=== PATIENT | female | born 1965 | race Caucasian/White ===

== ENCOUNTER → 2018-01-02 07:14 | Outpatient (CLI) | payer OTHER, SELFPAY ==
[2018-01-02 10:51] LABS: Absolute Lymphocyte Count 1.91 X10^3/ul (0.83-4.51); Absolute Neutrophil Count 2.5 X10^3/uL (2.0-7.7); Basophil# 0.02 X10^3/uL; Basophil% 0.4 % (0-1); Eosinophil# 0.14 X10^3/uL; Eosinophils% 2.8 % (0-5); Hematocrit 43.3 % (37-47); Hemoglobin 14.6 g/dl (12.0-15.0); Lymphocyte # 1.91 X10^3/ul (4.0); Lymphocyte % 38.4 % (19-41); Mean Corp Hgb Conc 33.7 g/gl (32-36); Mean Corpuscular Hgb 30.5 pg (27.0-32.0); Mean Corpuscular Volume 90.6 fL (81-99); Mean Platelet Vol. 9.6 fl (6.2-12.0); Monocyte# 0.36 X10^3/uL; Monocyte% 7.2 % (0-10); Neutrophil # 2.53 X10^3/uL (2.7-7.7); Platelet Count 295 K/mm3 (150-450); RBC Distribution Width CV 13.5 % (11.6-14.6); RBC Distribution Width SD 44.1 fl (35.1-43.9); Red Blood Count 4.78 M/mm3 (4.2-5.4)
[2018-01-02 10:54] LABS: POSITIVE COUNT NO; POSITIVE DIFFERENTIAL NO; POSITIVE MORPHOLOGY NO
[2018-01-02 11:09] LABS: Vitamin B12 177 pg/mL (211-911); Vitamin D,25 Hydroxy 29.9 ng/mL (29.95-100.01)
[2018-01-02 11:47] LABS: AST(SGOT) 23 U/L (15-37); Alanine Aminotransfer ALT/SGPT 27 U/L (13-56); Albumin, Serum 3.7 g/dL (3.2-5.0); Alkaline Phosphatase 78 U/L (45-117); Anion Gap 7 (5-15); BUN 14 mg/dL (7-18); BUN/Creat Ratio 21.6 RATIO (10-20); Calcium,Total 8.8 mg/dL (8.5-10.1); Chloride 106 mmol/L (98-107); Cholesterol 137 mg/dL (200); Creatinine, Serum 0.65 mg/dL (0.55-1.02); EST Glomerular Filtration Rate 101 mL/min (>60); Est Glom Filt Rate - Afr Amer 123 mL/min (>60); Free T3 2.8 pg/mL (2.18-3.98); Globulin 3.8 g/dL (2.2-4.2); Glucose 84 mg/dL (74-106); High Density Lipoprotein 44 mg/dL; Iron 99 ug/dL (50-170); Potassium 4.3 mmol/L (3.5-5.1); Protein, Total 7.5 g/dL (6.4-8.2); Sodium Level 142 mmol/L (136-145); T4 Free Direct 0.95 ng/dL (0.76-1.46); Thyroid Stim Hormone (TSH) 2.26 uIU/mL (0.358-3.74); Triglycerides 112 mg/dL; Very Low Density Lipoprotein 22 mg/dL (5-40)
== END ==
PROVIDERS: Family Provider Nurse Practitioner; PCP Nurse Practitioner; Referring Provider Nurse Practitioner; Visit Provider Nurse Practitioner
DX: E21.0 Primary hyperparathyroidism (principal); D50.9 Iron deficiency anemia, unspecified; E55.9 Vitamin D deficiency, unspecified; Z13.220 Encounter for screening for lipoid disorders; Z86.39 Personal history of other endocrine, nutritional and metabolic disease
CPT/HCPCS: 36415; 80053; 80061; 82306; 82607; 82746; 83540; 83970; 84439; 84443; 84481; 85025

== ENCOUNTER → 2018-02-10 07:24 | Outpatient (CLI) | payer OTHER, SELFPAY ==
--- NOTE | 2018-02-10 07:01 | BI_ITS ---
MAMMOGRAPHY - BILATERAL SCREENING REASON FOR EXAM: Female, 52 years old. Routine annual screening examination. PERTINENT HISTORY: Non-contributory. TECHNIQUE: Digital bilateral breast roya (3D mammographic acquisition) in the CC and MLO projections. 2-D mediolateral oblique (MLO) and craniocaudad (CC) views of both breasts were obtained. CAD: Full Field Digital Mammography with Computer Added Detection was performed. COMPARISON: Comparison is made with prior examination dated November 21, 2016 and November 21, 2015. FINDINGS: Breast Composition: The breasts are heterogeneously dense, which may obscure small masses. There are no dominant masses or suspicious calcifications. No other significant abnormalities are identified. There has been no significant change since the prior study. BI/SCREENING MAMM (CAD), BILAT IMPRESSION: Stable bilateral screening mammogram. Yearly follow-up mammogram recommended. (A) ASSESSMENT CATEGORY: BIRADS Category 1: Negative. A letter regarding these results will be sent to the patient by the facility within 30 days. Approximately 10% of breast cancers are not detected by mammography. A normal mammogram should not delay biopsy of a clinically suspicious abnormality. [id number] Electronically Signed: Jose Angel Conteh MD at 9:18 EST Tel [phone], Service support ,
--- OUTSIDE RECORDS SUMMARY | 2018-03-24 19:58 | XMS RPT_ITS | Continuity of Care Document ---
:1965 Author Organization [facility] Address [address] [facility] [facility] [address] [place] [address] Phone Care Team Providers Name Role Phone Shae Shore CNP Unavailable Genesis Samayoa Unavailable Unavailable Gravius, Florence Unavailable Unavailable Problems Name Dates Details 3 pregnancies 2 births 1 cesarian and 1 vaginal Status: Active Anemia Status: Active BMI 22.0-22.9, adult (Z68.22, V85.1) Status: Active Encounter for screening for lipid disorder (Z13.220, V77.91) Status: Active Encounter for screening mammogram for breast cancer (Renamed from Encounter for screening mammogram for malignant neoplasm of breast) (Z12.31, V76.12) Status: Active H/O Johnny thyroiditis (Z86.39, V12.29) Status: Active Iron deficiency anemia (D50.9, 280.9) Status: Active Need for prophylactic vaccination and inoculation against influenza (Renamed from Need for immunization against influenza) (Z23, V04.81) Status: Active Nonsmoker (Z78.9, V49.89) Status: Active Osteopenia (M85.80, 733.90) Comments: BD done Status: Active Parathyroidectomy Feb-2017 Comments: took out one of the 4 parathyroid glands Status: Active Primary hyperparathyroidism (E21.0, 252.01) Comments: s/p parathyroidectomy 2016 by Megan last PTH September by Justin normal range, repeat prn will repeat today Status: Active Tinnitus (H93.19, 388.30) Comments: plays bells, consider ENT eval in future Status: Active Vitamin B12 deficiency (E53.8, 266.2) Status: Active Vitamin D deficiency (E55.9, 268.9) Status: Active Medications Name Dates Details Biotin 1 MG Oral Capsule daily for 0 days Refills: 0 Ordered:31-Dec-2017 Shae Shore CNP, CNP, Mary E Start : 31-Dec-2017 Active Calcium 600 MG Oral Tablet 2 (two) Tablet daily for 0 days Quantity: 30 {Tablet} Refills: 0 Ordered:31-Dec-2017 Shae Shore CNP, CNP, Mary E Start : 31-Dec-2017 Active Cyanocobalamin 2500 MCG Sublingual Tablet Sublingual 1 (one) Microgram daily for 0 days Quantity: 90 {Milligram} Refills: 0 Ordered:05-Jan-2018 Shae Shore CNP, CNP, Mary E Start : 05-Jan-2018 Active Iron (Ferrous Gluconate) 325 MG Oral Tablet daily for 0 days Refills: 0 Ordered:31-Dec-2017 Shae Shore CNP, CNP, Mary E Start : 31-Dec-2017 Active Vitamin D 2000 UNIT Oral Capsule daily for 0 days Refills: 0 Ordered:31-Dec-2017 Shae Shore CNP, CNP, Mary E Start : 31-Dec-2017 Active Vitamin D3 Super Strength 2000 UNIT Oral Tablet 1 (one) Tablet daily for 0 days Quantity: 60 {Tablet} Refills: 0 Ordered:05-Jan-2018 Shae Shore CNP, CNP, Mary E Start : 05-Jan-2018 Active Allergies and Adverse Reactions Name Dates Details No Known Allergies (Allergy) Onset: 31-Dec-2017 Status: Active No Known Drug Allergies (Allergy) Onset: 31-Dec-2017 Status: Active Procedures Procedure Dates Details Parathyroidectomy Completed Comments: one of the four glands removed Family History Unknown Family Member Name Dates Details Maternal Aunt Comments: hypothyroidism Status: Active Mother Comments: hypertension Status: Active Sister 1 Comments: hoshimotos Status: Active Social History Name Dates Details Alcohol use: Non Drinker / No Alcohol Use. Status: Active Caffeine use Comments: one cup a day Status: Active Drug Use: No drug use. Status: Active Tobacco use: Never smoker. Status: Active Smoking Status Name Dates Details Never smoker Vital Signs Date Test Result Details [id number] Temperature 98.1 f Comments: Method: Temporal Pulse 73 /min Comments: Pattern: Regular Respiration Rate 16 /min Comments: Pattern: Unlabored O2 SAT 98 % Comments: Room air BP Systolic 128 mm[Hg] Comments: Patient Position: Sitting; Cuff Location: Left Arm; Cuff Size: Standard BP Diastolic 80 mm[Hg] Comments: Patient Position: Sitting; Cuff Location: Left Arm; Cuff Size: Standard Weight 141.5 lb Height 66.5 in Body Mass Index Calculated 22.5 kg/m2 Body Surface Area Calculated 1.74 m2 :31 Temperature 97.6 f Comments: Method: Temporal Pulse 65 /min Comments: Pattern: Regular Respiration Rate 16 /min Comments: Pattern: Unlabored O2 SAT 98 % Comments: Room air BP Systolic 132 mm[Hg] Comments: Patient Position: Sitting; Cuff Location: Left Arm; Cuff Size: Standard BP Diastolic 82 mm[Hg] Comments: Patient Position: Sitting; Cuff Location: Left Arm; Cuff Size: Standard Weight 141.5 lb Height 66.5 in Body Mass Index Calculated 22.5 kg/m2 Body Surface Area Calculated 1.74 m2 Results Date Description Value Details :28 CBC W/Diff, Automated Comments: [facility] [address] [place], [place], [id number] Absolute Lymph 1.91 {X10_3/ul} (Normal) Range: 0.83-4.51 Absolute Neut 2.5 {X10_3/uL} (Normal) Range: 2.0-7.7 IM GRAN % 0.200 % (Normal) Range: 0.0-0.9 Comments: IG% - Immature Granulocytes (promyelocytes, myelocytes andmetamyelocytes) > 1% indicates that a LEFT SHIFT is Present. BASO% 0.4 % (Normal) Range: 0-1 EO% 2.8 % (Normal) Range: 0-5 MONO% 7.2 % (Normal) Range: 0-10 LY% 38.4 % (Normal) Range: 19-41 NEUT% 51.0 % (Normal) Range: 47-70 MPV 9.6 fL (Normal) Range: 6.2-12.0 PLT 295 K/mm3 (Normal) Range: 150-450 RDW SD 44.1 fL (Abnormal) Range: 35.1-43.9 RDW CV 13.5 % (Normal) Range: 11.6-14.6 MCHC 33.7 {g/gl} (Normal) Range: 32-36 MCH 30.5 pg (Normal) Range: 27.0-32.0 MCV 90.6 fL (Normal) Range: 81-99 HCT 43.3 % (Normal) Range: 37-47 HGB 14.6 g/dL (Normal) Range: 12.0-15.0 RBC 4.78 {M/mm3} (Normal) Range: 4.2-5.4 WBC 5.0 K/mm3 (Normal) Range: 4.4-11.0 62-Qpq-54883:28 Comprehensive Metabolic Profil Comments: Is Patient Taking Vitamins or Folic Acid Supplements? [facility] [address] [place], [address] GAP 7 (Normal) Range: 5-15 CO2 29.0 mmol/L (Normal) Range: 21.0-32.0 CL 106 mmol/L (Normal) Range: 98-107 K 4.3 mmol/L (Normal) Range: 3.5-5.1 NA 142 mmol/L (Normal) Range: 136-145 T BILI 0.80 mg/dL (Normal) Range: 0.20-1.00 ALT 27 U/L (Normal) Range: 13-56 ALK P 78 U/L (Normal) Range: 45-117 AST 23 U/L (Normal) Range: 15-37 CA 8.8 mg/dL (Normal) Range: 8.5-10.1 A/G 1.0 {RATIO} (Normal) Range: 0.9-2.4 GLOB 3.8 g/dL (Normal) Range: 2.2-4.2 ALB 3.7 g/dL (Normal) Range: 3.2-5.0 T PROT 7.5 g/dL (Normal) Range: 6.4-8.2 BUN/CRE 21.6 {RATIO} (Abnormal) Range: 10-20 EST GFR - AA 123 mL/min (Normal) Comments: GFR Calc EST GFR 101 mL/min (Normal) Comments: Non- GFR Calc CREAT,SERUM 0.65 mg/dL (Normal) Range: 0.55-1.02 Comments: The validity of the calculated GFR AND GFRAA in patients over70 years has not been determined. Clinical correlation isessential. BUN 14 mg/dL (Normal) Range: 7-18 GLU 84 mg/dL (Normal) Range: 74-106 Comments: Please note revised GLUCOSE reference range ymyourlix05/02/2018. 27-Bjv-74401:28 Folates, (Folic Acid) Comments: Is Patient Taking Vitamins or Folic Acid Supplements? [facility] [address] [place], [address] FOLATES 28.20 ng/mL (Normal) Range: 3.1-55.4 :28 Free T3 Comments: Is Patient Taking Vitamins or Folic Acid Supplements? [facility] [address] [place], [phone] FREE T3 2.8 pg/mL (Normal) Range: 2.18-3.98 :28 Iron Comments: Is Patient Taking Vitamins or Folic Acid Supplements? [facility] [address] [place], [phone] IRON 99 ug/dL (Normal) Range: 50-170 94-Ccj-66118:28 Lipid Profile Comments: Is Patient Taking Vitamins or Folic Acid Supplements? [facility] [address] [place], [phone](412) VLDL 22 mg/dL (Normal) Range: 5-40 LDL 71 mg/dL (Normal) Range: 0-130 HDL 44 mg/dL (Normal) Comments: The drugs N-Acetylcysteine and Metamizole may falselydepress this assay. Reference Range HDL <40 mg/dL Low HDL Cholesterol HDL >or= 60 mg/dL High HDL Cholesterol TRIG 112 mg/dL (Normal) Comments: The drugs N-Acetylcysteine and Metamizole may falselydepress this assay.Serum Triglycerides Reference Interval Normal <150 mg/dL Borderline high 150 - 199 mg/dL High 200 - 499 mg/dL Very High > or = 500 mg/dL CHOL 137 mg/dL (Normal) Comments: <200 mg/dL Desirable 200-240 mg/dL Borderline >240 mg/dL High Risk :28 PTHIN 54.0 pg/mL (Normal) Comments: [facility] [address] [place], [id number] Range: 18.4-80.1 :28 T4 Free Direct Comments: Is Patient Taking Vitamins or Folic Acid Supplements? [facility] [address] [place], [phone] T4 FREE DIRECT 0.95 ng/dL (Normal) Range: 0.76-1.46 :28 Thyroid Stim Hormone (TSH) Comments: Is Patient Taking Vitamins or Folic Acid Supplements? [facility] [address] [place], [phone] TSH 2.26 {uIU/mL} (Normal) Range: 0.358-3.74 :28 Vitamin B12 177 pg/mL (Abnormal) Comments: [facility] [address] [place], [phone] Range: 211-911 :28 Vitamin D,25 Hydroxy Comments: [facility] [address] [place], [address] Vitamin D 25-OH 29.9 ng/mL (Abnormal) Range: 29.95-100.01 Comments: Vitamin D 25(OH) Status Range Deficiency <20 ng/mL (50nmol/L) Insuffciency 20 - 30 ng/mL (50 - 75 nmol/L) Sufficiency 30 - 100 ng/mL (75 - 250 nmol/L) Toxicity >100 ng/mL (>250 nmol/L) Plan of Care Name Dates Details Instructions Nonsmoker : Eprescribed prescriptions (G8553) Indication: Nonsmoker Nonsmoker : Follow up in 6 months for well woman exam and pap Indication: Nonsmoker Nonsmoker : Eprescribed prescriptions (G8553) Indication: Nonsmoker Planned Observations CALCIFEDIOL ([id number])Indication: Vitamin D deficiency On: :04 Request VITAMIN B12 AND FOLATES (50217)Indication: Vitamin B12 deficiency On: :03 Request LIPID PANEL (77796)Indication: Encounter for screening for lipid disorder On: :56 Request CBC WITH MANUAL DIFF (00343)Indication: Iron deficiency anemia On: :47 Request T4, FREE (THYROXINE) ([id number])Indication: H/O Johnny thyroiditis On: :45 Request T3, FREE (TRIDOTHYRONINE) (73090)Indication: H/O Johnny thyroiditis On: :45 Request TSH (THYROID STIMULATING HORMONE) ([id number])Indication: H/O Johnny thyroiditis On: :44 Request CALCIFEDIOL (36208)Indication: Vitamin D deficiency On: :48 Request CBC WITH MANUAL DIFF (37993)Indication: Iron deficiency anemia On: :47 Request VITAMIN B12 AND FOLATES (93364)Indication: Iron deficiency anemia On: :47 Request IRON ([id number])Indication: Iron deficiency anemia On: :46 Request TSH ([id number])Indication: H/O Johnny thyroiditis On: :45 Request T4, FREE (THYROXINE) ([id number])Indication: H/O Johnny thyroiditis On: :44 Request T3, FREE (TRIDOTHYRONINE) ([id number])Indication: H/O Johnny thyroiditis On: :44 Request Metabolic Panel, Comprehensive (40518)Indication: Primary hyperparathyroidism On: :43 Request PARATHORMONE (64333)Indication: Primary hyperparathyroidism On: 00-Ddq-89832:41 Request Planned Encounters Medical; 6 Month FU - On: 03-Jul-2018 8:15 [facility] Shae Shore CNP, CNP, Mary E Planned Procedures B 12 Injection, 1000 mcg On: 30-Jan-2018 Intent (J3420)By: Florence Burgos Comments: lot:[id number]:June 2019site/route: L dltdamt:1mlJasmin, CCMA B 12 Injection, 1000 mcg On: 23-Jan-2018 Intent (J3420)By: Florence Burgos Comments: lot:[id number]:june 2019site/route: R dltdamt:1mlJasmin, CCMA B 12 Injection, 1000 mcg On: 15-Jan-2018 Intent (J3420)By: Florence Burgos Comments: lot:[id number]:june 2019site/route:R dltdamt:1mlJasmin, CCMA Flu Vaccine (Quadrivalent) On: 15-Jan-2018 Intent [id number]: Florence Burgos Comments: Lot #[id number]/30/2019Site-L dltd, IMDose prefilled syringegiven by:LYNSEY Spann reviewed and ABN signed B 12 Injection, 1000 mcg On: 05-Jan-2018 Intent (J3420)By: Shae Shore CNP Comments: Vitamin B12 1000 mcg injectionLot-- [id number]-- apr20L Delt IMpt tolerated wellTLOCKLEAR, SENIOR ENVIRONMENTAL CONSULTANT Shae Shore CNP SCREENING DIGITAL TOMOSYNTHESIS On: 31-Dec-2017 Intent OF BREAST ([id number])By: Shae Shore CNP, CNP, Mary E Planned Medications Vitamin B-12 1000 MCG/ML Injection Solution Ordered: 05-Jan-2018 Pending Shae Shore CNP, CNP, Mary E Vitamin B-12 1000 MCG/ML Injection Solution Ordered: 15-Jan-2018 Pending Florence Burgos Vitamin B-12 1000 MCG/ML Injection Solution Ordered: 23-Jan-2018 Pending Florence Burgos Vitamin B-12 1000 MCG/ML Injection Solution Ordered: 30-Jan-2018 Pending Florence Burgos Instructions Name Dates Details BMI 22.0-22.9, adult : Patient Instructions Indication: BMI 22.0-22.9, adult Nonsmoker : How to access health information online Indication: Nonsmoker Nonsmoker : How to access health information online - Detail Indication: Nonsmoker Nonsmoker : Patient Instructions Indication: Nonsmoker Nonsmoker : How to access health information online Indication: Nonsmoker Nonsmoker : How to access health information online - Detail Indication: Nonsmoker Nonsmoker : Patient Instructions Indication: Nonsmoker Encounters Annotation/Addendum On: 30-Jan-2018 14:01 Encounter Reason: Injections - The medication the patient is here to receive is vitamin B12 IM.Encounter Diagnosis: Vitamin B12 deficiency End: 30-Jan-2018 14:10 [facility] Annotation/Addendum On: 23-Jan-2018 13:43 Encounter Diagnosis: Vitamin B12 deficiency End: 25-Jan-2018 7:40 [facility] Office Visit On: 15-Jan-2018 10:07 Encounter Reason: Injections - The medication the patient is here to receive is vitamin B12 IM and other (influenzA).Encounter Diagnosis: Need for prophylactic vaccination and inoculation against influenza (Renamed from Need for immunizati End: 15-Jan-2018 10:38 on against influenza), Vitamin B12 deficiency [facility] Office Visit On: 05-Jan-2018 16:13 Encounter Reason: Follow up tests - Diagnostic tests include other (labs). Date: (01/02/18). Note for Discuss procedure results: Here to review labs B12 and vitamin D, End: 05-Jan-2018 17:06 [ADDITIONAL REASON] Injections - The medication the patient is here to receive is vitamin B12 IM. Encounter Diagnosis: Nonsmoker, BMI 22.0-22.9, adult, Vitamin B12 deficiency, Vitamin D deficiency [facility] Annotation/Addendum On: 02-Jan-2018 7:36 [facility] End: 02-Jan-2018 7:38 Office Visit On: 31-Dec-2017 8:02 Encounter Reason: new patient female physical - Last seen between 1-3 months ago. General health: feels well with no complaints, has good energy level and is sleeping well. The patient's appetite is normal. Nutrition: no End: 31-Dec-2017 9:12 rmal/adequate. Exercises 3 (3-5) days per week. Sleeps on average 7 hours per night. Normal bowel and bladder habits. Safety measures include appropriate use of safety belts and home smoke detectors. Cu rrent emotional problems include anxiety (stress- work related). screening, colonoscopy (2015- by dr. suárez), screening, mammography (due for one) and screening, Pap smear (3 years ago based on dr. frida garner). Note for Physical exam: Wanting to establish as new pt., [ADDITIONAL REASON] Hot Flashes - Note for Hot flashes: Hot flashes , [ADDITIONAL REASON] Hyperparathyroidism, Secondary - Note for Secondary hyperparathyroidism: Pt montez d parathyroidectomy in 2017 by Megan referred by Kale, last PTH September 2017 66.6 Encounter Diagnosis: BMI 22.0-22.9, adult, Nonsmoker, Primary hyperparathyroidism, H/O Johnny thyroiditis, Iron deficiency anemia, Vitamin D deficiency, Encounter for screening mammogram for breast cancer (Renamed from Encounter for screening mammogram for malignant neoplasm of breast), Osteopenia, Encounter for screening for lipid disorder, Tinnitus [facility] Meek; a guarantor
--- OUTSIDE RECORDS SUMMARY | 2018-03-24 19:58 | XMS RPT_ITS | Continuity of Care Document ---
:1965 Author Organization [facility] Address [address] [place] [address] Phone Care Team Providers Name Role Phone [...] smoker Vital Signs Date Test Result Details [id number]-[id number]:14 Temperature 98.1 f Comments: Method: Temporal Pulse [...] Value Details :28 CBC W/Diff, Automated Comments: [facility] [address] [facility]. [place], [place], [phone] Absolute Lymph 1.91 {X10_3/ul} (Normal) Range: 0.83-4.51 [...] 4.2-5.4 WBC 5.0 K/mm3 (Normal) Range: 4.4-11.0 17-Exw-20169:28 Comprehensive Metabolic Profil Comments: Is Patient Taking Vitamins or Folic Acid Supplements? [facility] [address] [place], [address] GAP 7 (Normal) Range: 5-15 CO2 29.0 [...] Comments: Please note revised GLUCOSE reference range bscrxdqmo45/02/2018. 70-Oox-00353:28 Folates, (Folic Acid) Comments: Is Patient Taking Vitamins or Folic Acid Supplements? [facility] [address] [place], [address] FOLATES 28.20 ng/mL (Normal) Range: 3.1-55.4 :28 Free T3 Comments: Is Patient Taking Vitamins or Folic Acid Supplements? [facility] [address] [place], [phone] FREE T3 2.8 pg/mL (Normal) Range: 2.18-3.98 :28 Iron Comments: Is Patient Taking Vitamins or Folic Acid Supplements? [facility] [address] [place], [phone] IRON 99 ug/dL (Normal) Range: 50-170 74-Fxm-79580:28 Lipid Profile Comments: Is Patient Taking Vitamins or Folic Acid Supplements? [facility] [address] [place], [phone](016) VLDL 22 mg/dL (Normal) Range: 5-40 LDL [...] Risk :28 PTHIN 54.0 pg/mL (Normal) Comments: [facility] [address] [place], [phone] Range: 18.4-80.1 :28 T4 Free Direct Comments: Is Patient Taking Vitamins or Folic Acid Supplements? [facility] [address] [place], [phone] T4 FREE DIRECT 0.95 ng/dL (Normal) Range: 0.76-1.46 :28 Thyroid Stim Hormone (TSH) Comments: Is Patient Taking Vitamins or Folic Acid Supplements? [facility] [address] [place], [phone] TSH 2.26 {uIU/mL} (Normal) Range: 0.358-3.74 :28 Vitamin B12 177 pg/mL (Abnormal) Comments: [facility] [address] [place], [phone] Range: 211-911 :28 Vitamin D,25 Hydroxy Comments: [facility] [address] [place], [address] Vitamin D [...] prescriptions (G8553) Indication: Nonsmoker Planned Observations CALCIFEDIOL (74955)Indication: Vitamin D deficiency On: :04 Request VITAMIN B12 AND FOLATES (47647)Indication: Vitamin B12 deficiency On: :03 Request LIPID PANEL (93899)Indication: Encounter for screening for lipid disorder On: :56 Request CBC WITH MANUAL DIFF ([id number])Indication: Iron deficiency anemia On: :47 Request T4, FREE (THYROXINE) (35102)Indication: H/O Johnny thyroiditis On: :45 Request T3, FREE (TRIDOTHYRONINE) (45844)Indication: H/O Johnny thyroiditis On: :45 Request TSH (THYROID STIMULATING HORMONE) (25781)Indication: H/O Johnny thyroiditis On: :44 Request CALCIFEDIOL (70798)Indication: Vitamin D deficiency On: :48 Request CBC WITH MANUAL DIFF (14221)Indication: Iron deficiency anemia On: :47 Request VITAMIN B12 AND FOLATES (29380)Indication: Iron deficiency anemia On: :47 Request IRON (08306)Indication: Iron deficiency anemia On: :46 Request TSH ([id number])Indication: H/O Johnny thyroiditis On: :45 Request T4, FREE (THYROXINE) (26396)Indication: H/O Johnny thyroiditis On: :44 Request T3, FREE (TRIDOTHYRONINE) ([id number])Indication: H/O Johnny thyroiditis On: :44 Request Metabolic Panel, Comprehensive ([id number])Indication: Primary hyperparathyroidism On: :43 Request PARATHORMONE (24003)Indication: Primary hyperparathyroidism On: 97-Tlm-13255:41 Request Planned Encounters Medical; 6 Month FU - On: 03-Jul-2018 8:15 [facility] Shae Shore CNP, CNP, Mary E Planned Procedures B 12 Injection, 1000 mcg On: 15-Jan-2018 Intent (J3420)By: Florence Burgos Comments: lot:[id number]:june 2019site/route:R dltdamt:1mlJasmin, CCMA Flu Vaccine (Quadrivalent) On: 15-Jan-2018 Intent [id number]: Florence Burgos Comments: Lot #[id number]/30/2019Site-L dltd, IMDose prefilled syringegiven by:LYNSEY Spann reviewed and ABN signed B 12 Injection, 1000 mcg On: 05-Jan-2018 Intent (J3420)By: Shae Shore CNP Comments: Vitamin B12 1000 mcg injectionLot-- [id number]-- apr20L Delt IMpt tolerated wellTLOCKLEAR, HOSPITAL CLINIC ASSISTANT Shae Shore CNP SCREENING DIGITAL TOMOSYNTHESIS On: 31-Dec-2017 Intent OF BREAST (77230)By: Shae Shore CNP, CNP, Mary E Planned Medications Vitamin B-12 1000 MCG/ML Injection Solution Ordered: 05-Jan-2018 Pending Shae Shore CNP, CNP, Mary E Vitamin B-12 1000 MCG/ML Injection Solution Ordered: 15-Jan-2018 Pending Florence Burgos Instructions Name Dates Details [...] Nonsmoker : Patient Instructions Indication: Nonsmoker Encounters Office Visit On: 15-Jan-2018 10:07 Encounter Reason: [...] include anxiety (stress- work related). screening, colonoscopy (2014- by dr. suárez), screening, mammography (due for [...] disorder, Tinnitus [facility] Meek; a guarantor
--- OUTSIDE RECORDS SUMMARY | 2018-03-24 19:58 | XMS RPT_ITS | Continuity of Care Document ---
:1965 Author Organization [facility] Address [address] [place] [address] Phone Care Team Providers Name Role Phone Shae Shore CNP Unavailable Genesis Samayoa Unavailable Unavailable Problems Name Dates Details 3 [...] Iron deficiency anemia (D50.9, 280.9) Status: Active Nonsmoker (Z78.9, V49.89) Status: Active [...] ENT eval in future Status: Active Vitamin D deficiency (E55.9, 268.9) Status: Active Medications Name Dates Details Biotin 1 MG Oral Capsule daily for 0 days Refills: 0 Ordered:31-Dec-2017 Shae Shore CNP, CNP, Mary E Start : 31-Dec-2017 Active Calcium 600 MG Oral Tablet 2 (two) Tablet daily for 0 days Quantity: 30 {Tablet} Refills: 0 Ordered:31-Dec-2017 Shae Shore CNP, CNP, Mary E Start : 31-Dec-2017 Active Iron (Ferrous Gluconate) 325 MG Oral Tablet daily for 0 days Refills: 0 Ordered:31-Dec-2017 Shae Shore CNP, CNP, Mary E Start : 31-Dec-2017 Active Vitamin D 2000 UNIT Oral Capsule daily for 0 days Refills: 0 Ordered:31-Dec-2017 Shae Shore CNP, CNP, Mary E Start : 31-Dec-2017 Active Allergies and Adverse Reactions Name Dates Details No Known Allergies (Allergy) Onset: 31-Dec-2017 Status: Active No Known Drug Allergies (Allergy) Onset: 31-Dec-2017 Status: Active Procedures Procedure Dates Details Parathyroidectomy Completed Comments: one of the four glands removed Family History Unknown Family Member Name Dates Details Maternal Aunt Comments: hypothyroidism Status: Active Mother Comments: hypertension Status: Active Sister 1 Comments: arvind Status: Active Social History Name Dates Details Alcohol use: Non Drinker / No Alcohol Use. Status: Active Caffeine use Comments: one cup a day Status: Active Drug Use: No drug use. Status: Active Tobacco use: Never smoker. Status: Active Smoking Status Name Dates Details Never smoker Vital Signs Date Test Result Details [id number]-[id number]:31 Temperature 97.6 f Comments: Method: Temporal Pulse [...] 1.74 m2 Results Date Description Value Details No Result Information Available Plan of Care Name Dates Details Instructions Nonsmoker : Follow up in 6 months for well woman exam and pap Indication: Nonsmoker Nonsmoker : Eprescribed prescriptions (G8553) Indication: Nonsmoker Planned Observations LIPID PANEL (29057)Indication: Encounter for screening for lipid disorder On: :56 Request CBC WITH MANUAL DIFF (98241)Indication: Iron deficiency anemia On: :47 Request T4, FREE (THYROXINE) (17502)Indication: H/O Johnny thyroiditis On: :45 Request T3, FREE (TRIDOTHYRONINE) (51789)Indication: H/O Johnny thyroiditis On: :45 Request TSH (THYROID STIMULATING HORMONE) (36949)Indication: H/O Johnny thyroiditis On: :44 Request CALCIFEDIOL (96128)Indication: Vitamin D deficiency On: :48 Request CBC WITH MANUAL DIFF (84390)Indication: Iron deficiency anemia On: :47 Request VITAMIN B12 AND FOLATES (41196)Indication: Iron deficiency anemia On: :47 Request IRON (19183)Indication: Iron deficiency anemia On: :46 Request TSH (96892)Indication: H/O Johnny thyroiditis On: 72-Zfg-75020:45 Request T4, FREE (THYROXINE) (60286)Indication: H/O Johnny thyroiditis On: :44 Request T3, FREE (TRIDOTHYRONINE) (18440)Indication: H/O Johnny thyroiditis On: 36-Ryv-88869:44 Request Metabolic Panel, Comprehensive (45364)Indication: Primary hyperparathyroidism On: 87-Pvx-28302:43 Request PARATHORMONE (07607)Indication: Primary hyperparathyroidism On: 99-Erl-73559:41 Request Planned Encounters Medical; 6 Month FU - On: 03-Jul-2018 8:15 [facility] Shae Shore CNP, CNP, Mary E Planned Procedures SCREENING DIGITAL TOMOSYNTHESIS OF BREAST (34544)By: Mone On: 31-Dec-2017 Intent Shae CATES CNP, Mary E Instructions Name Dates Details Nonsmoker : How to access health information online Indication: Nonsmoker Nonsmoker : How to access health information online - Detail Indication: Nonsmoker Nonsmoker : Patient Instructions Indication: Nonsmoker Encounters Annotation/Addendum On: 02-Jan-2018 7:36 [facility] [...] Pt montez d parathyroidectomy in 2017 by [place] referred by Kale, last PTH September 2017 66.6 Encounter Diagnosis: BMI 22.0-22.9, adult, Nonsmoker, Primary hyperparathyroidism, H/O Johnny thyroiditis, Iron deficiency anemia, Vitamin D deficiency, Encounter for screening mammogram for breast cancer (Renamed from Encounter for screening mammogram for malignant neoplasm of breast), Osteopenia, Encounter for screening for lipid disorder, Tinnitus [facility] a guarantor
--- OUTSIDE RECORDS SUMMARY | 2018-03-24 19:58 | XMS RPT_ITS | Continuity of Care Document ---
:1965 Author Organization [facility] Address [address] [address] [place] [address] Phone Care Team Providers Name Role Phone [...] smoker Vital Signs Date Test Result Details [id number]:14 Temperature 98.1 f Comments: Method: Temporal Pulse [...] Value Details :28 CBC W/Diff, Automated Comments: [facility] [address] [facility]. [place], [place], [phone] Absolute Lymph 1.91 {X10_3/ul} (Normal) Range: 0.83-4.51 [...] 4.2-5.4 WBC 5.0 K/mm3 (Normal) Range: 4.4-11.0 47-Byt-39220:28 Comprehensive Metabolic Profil Comments: Is Patient Taking Vitamins or Folic Acid Supplements? [facility] [address] [place], [address] GAP 7 (Normal) Range: 5-15 CO2 29.0 [...] Comments: Please note revised GLUCOSE reference range mzatcdnxl39/02/2018. 88-Wne-08364:28 Folates, (Folic Acid) Comments: Is Patient Taking Vitamins or Folic Acid Supplements? [facility] [address] [place], [address] FOLATES 28.20 ng/mL (Normal) Range: 3.1-55.4 :28 Free T3 Comments: Is Patient Taking Vitamins or Folic Acid Supplements? [facility] [address] [place], [phone] FREE T3 2.8 pg/mL (Normal) Range: 2.18-3.98 :28 Iron Comments: Is Patient Taking Vitamins or Folic Acid Supplements? [facility] [address] [place], [phone] IRON 99 ug/dL (Normal) Range: 50-170 27-Ybr-29198:28 Lipid Profile Comments: Is Patient Taking Vitamins or Folic Acid Supplements? [facility] [address] [place], [phone] VLDL 22 mg/dL (Normal) Range: 5-40 LDL [...] Risk :28 PTHIN 54.0 pg/mL (Normal) Comments: [facility] [address] [place], [phone] Range: 18.4-80.1 :28 T4 Free Direct Comments: Is Patient Taking Vitamins or Folic Acid Supplements? [facility] [address] [place], [phone] T4 FREE DIRECT 0.95 ng/dL (Normal) Range: 0.76-1.46 :28 Thyroid Stim Hormone (TSH) Comments: Is Patient Taking Vitamins or Folic Acid Supplements? [facility] [address] [place], [phone] TSH 2.26 {uIU/mL} (Normal) Range: 0.358-3.74 :28 Vitamin B12 177 pg/mL (Abnormal) Comments: [facility] [address] [place], [phone] Range: 211-911 :28 Vitamin D,25 Hydroxy Comments: [facility] [address] [place], [address] Vitamin D [...] prescriptions (G8553) Indication: Nonsmoker Planned Observations CALCIFEDIOL (40370)Indication: Vitamin D deficiency On: :04 Request VITAMIN B12 AND FOLATES (87153)Indication: Vitamin B12 deficiency On: :03 Request LIPID PANEL (72416)Indication: Encounter for screening for lipid disorder On: :56 Request CBC WITH MANUAL DIFF (90509)Indication: Iron deficiency anemia On: :47 Request T4, FREE (THYROXINE) (42117)Indication: H/O Johnny thyroiditis On: :45 Request T3, FREE (TRIDOTHYRONINE) (21094)Indication: H/O Johnny thyroiditis On: :45 Request TSH (THYROID STIMULATING HORMONE) (53179)Indication: H/O Johnny thyroiditis On: :44 Request CALCIFEDIOL (35964)Indication: Vitamin D deficiency On: :48 Request CBC WITH MANUAL DIFF (23192)Indication: Iron deficiency anemia On: :47 Request VITAMIN B12 AND FOLATES (93480)Indication: Iron deficiency anemia On: :47 Request IRON (56258)Indication: Iron deficiency anemia On: :46 Request TSH (96683)Indication: H/O Johnny thyroiditis On: :45 Request T4, FREE (THYROXINE) (15417)Indication: H/O Johnny thyroiditis On: :44 Request T3, FREE (TRIDOTHYRONINE) (54752)Indication: H/O Johnny thyroiditis On: :44 Request Metabolic Panel, Comprehensive (67331)Indication: Primary hyperparathyroidism On: :43 Request PARATHORMONE (17416)Indication: Primary hyperparathyroidism On: 36-Mzm-99453:41 Request Planned Encounters Medical; 6 Month FU - On: 03-Jul-2018 8:15 [facility] Shae Shore CNP, CNP, Mary E Planned Procedures B 12 Injection, 1000 mcg On: 23-Jan-2018 Intent (J3420)By: Florence Burgos Comments: lot:[id number]:june 2019site/route: R dltdamt:1mlJasmin, CCMA B 12 Injection, 1000 mcg On: 15-Jan-2018 Intent (J3420)By: Florence Burgos Comments: lot:[id number]:june 2019site/route:R dltdamt:1mMARIVEL [place] Flu Vaccine (Quadrivalent) On: 15-Jan-2018 Intent 33899Ur: Florence Burgos Comments: Lot #[id number]/2019Site-L dltd, IMDose prefilled syringegiven by:LYNSEY Spann reviewed and ABN signed B 12 Injection, 1000 mcg On: 05-Jan-2018 Intent (J3420)By: Shae Shore CNP Comments: Vitamin B12 1000 mcg injectionLot-- [id number]-- apr20L Delt IMpt tolerated wellTLOCKLEAR, MAIL READER Shae Shore CNP SCREENING DIGITAL TOMOSYNTHESIS On: 31-Dec-2017 Intent OF BREAST ([id number])By: Shae Shore CNP, CNP, Mary E Planned Medications Vitamin B-12 1000 MCG/ML Injection Solution Ordered: 05-Jan-2018 Pending Shae Shore CNP, CNP, Mary E Vitamin B-12 1000 MCG/ML Injection Solution Ordered: 15-Jan-2018 Pending Florence Burgos Vitamin B-12 1000 MCG/ML Injection Solution Ordered: 23-Jan-2018 Pending Florence Burgos Instructions Name Dates Details [...] Patient Instructions Indication: Nonsmoker Encounters Annotation/Addendum On: 23-Jan-2018 13:43 Encounter Diagnosis: Vitamin [...] Pt montez d parathyroidectomy in 2017 by [place] referred by [place], last PTH September 2017 65.6 Encounter Diagnosis: BMI 22.0-22.9, adult, Nonsmoker, Primary hyperparathyroidism, H/O Johnny thyroiditis, Iron deficiency anemia, Vitamin D deficiency, Encounter for screening mammogram for breast cancer (Renamed from Encounter for screening mammogram for malignant neoplasm of breast), Osteopenia, Encounter for screening for lipid disorder, Tinnitus [facility] [place]; a guarantor
--- OUTSIDE RECORDS SUMMARY | 2018-03-24 19:58 | XMS RPT_ITS | Continuity of Care Document ---
:1965 Author Organization [facility] Address [address] [facility] [address] [place] [address] Phone Care Team Providers Name Role Phone [...] smoker Vital Signs Date Test Result Details [id number]:14 Temperature 98.1 f Comments: Method: Temporal Pulse [...] Value Details :28 CBC W/Diff, Automated Comments: [facility] [address] [place], [place], [phone] Absolute Lymph 1.91 {X10_3/ul} (Normal) Range: 0.83-4.51 [...] 4.2-5.4 WBC 5.0 K/mm3 (Normal) Range: 4.4-11.0 11-Gyr-97783:28 Comprehensive Metabolic Profil Comments: Is Patient Taking Vitamins or Folic Acid Supplements? [facility] [address] [place], [place], [phone] GAP 7 (Normal) Range: 5-15 CO2 29.0 [...] Comments: Please note revised GLUCOSE reference range binsmbhyg84/02/2018. 16-Yap-00972:28 Folates, (Folic Acid) Comments: Is Patient Taking Vitamins or Folic Acid Supplements? [facility] [address] [place], [phone] FOLATES 28.20 ng/mL (Normal) Range: 3.1-55.4 :28 Free T3 Comments: Is Patient Taking Vitamins or Folic Acid Supplements? [facility] [address] [place], [phone] FREE T3 2.8 pg/mL (Normal) Range: 2.18-3.98 :28 Iron Comments: Is Patient Taking Vitamins or Folic Acid Supplements? [facility] [address] [place], [address] IRON 99 ug/dL (Normal) Range: 50-170 17-Ary-15502:28 Lipid Profile Comments: Is Patient Taking Vitamins or Folic Acid Supplements? [facility] [address] [place], [address] VLDL 22 mg/dL (Normal) Range: 5-40 LDL [...] Risk :28 PTHIN 54.0 pg/mL (Normal) Comments: [facility] [address] [place], [address] Range: 18.4-80.1 :28 T4 Free Direct Comments: Is Patient Taking Vitamins or Folic Acid Supplements? [facility] [address] [place], [phone] T4 FREE DIRECT 0.95 ng/dL (Normal) Range: 0.76-1.46 :28 Thyroid Stim Hormone (TSH) Comments: Is Patient Taking Vitamins or Folic Acid Supplements? [facility] [address] [place], [phone] TSH 2.26 {uIU/mL} (Normal) Range: 0.358-3.74 :28 Vitamin B12 177 pg/mL (Abnormal) Comments: [facility] [address] [place], [address] Range: 211-911 :28 Vitamin D,25 Hydroxy Comments: [facility] [address] [place], [phone] Vitamin D 25-OH 29.9 ng/mL (Abnormal) Range: [...] prescriptions (G8553) Indication: Nonsmoker Planned Observations CALCIFEDIOL (35501)Indication: Vitamin D deficiency On: :04 Request VITAMIN B12 AND FOLATES (38975)Indication: Vitamin B12 deficiency On: :03 Request LIPID PANEL (34483)Indication: Encounter for screening for lipid disorder On: :56 Request CBC WITH MANUAL DIFF (21623)Indication: Iron deficiency anemia On: :47 Request T4, FREE (THYROXINE) (64064)Indication: H/O Johnny thyroiditis On: :45 Request T3, FREE (TRIDOTHYRONINE) (35338)Indication: H/O Johnny thyroiditis On: :45 Request TSH (THYROID STIMULATING HORMONE) (43844)Indication: H/O Johnny thyroiditis On: :44 Request CALCIFEDIOL (31313)Indication: Vitamin D deficiency On: :48 Request CBC WITH MANUAL DIFF (72247)Indication: Iron deficiency anemia On: :47 Request VITAMIN B12 AND FOLATES (10489)Indication: Iron deficiency anemia On: :47 Request IRON (13539)Indication: Iron deficiency anemia On: :46 Request TSH (06501)Indication: H/O Johnny thyroiditis On: :45 Request T4, FREE (THYROXINE) (78264)Indication: H/O Johnny thyroiditis On: :44 Request T3, FREE (TRIDOTHYRONINE) (20987)Indication: H/O Johnny thyroiditis On: :44 Request Metabolic Panel, Comprehensive (23455)Indication: Primary hyperparathyroidism On: :43 Request PARATHORMONE (38721)Indication: Primary hyperparathyroidism On: :41 Request Planned Encounters Medical; 6 Month FU - On: 03-Jul-2018 8:15 [facility] Shae Shore CNP, CNP, Mary E Planned Procedures B 12 Injection, 1000 mcg On: 05-Jan-2018 Intent (J3420)By: Shae Shore CNP Comments: Vitamin B12 1000 mcg injectionLot-- [id number]-- apr20L Delt IMpt tolerated wellTLGARDENIA BARRERA CNP, Mary E SCREENING DIGITAL TOMOSYNTHESIS OF On: 31-Dec-2017 Intent BREAST (29547)By: Shae Shore CNP, CNP, Mary E Planned Medications Vitamin B-12 1000 MCG/ML Injection Solution Ordered: 05-Jan-2018 Pending Shae Shore CNPa REPORT PROGRAMMER, Shae Irizarry Instructions Name Dates Details BMI 22.0-22.9, adult [...] Instructions Indication: Nonsmoker Encounters Office Visit On: 05-Jan-2018 16:13 Encounter Reason: [...] Pt montez d parathyroidectomy in 2017 by [place] referred by Kale, last PTH September 2017 66.6 Encounter Diagnosis: BMI 22.0-22.9, adult, Nonsmoker, Primary hyperparathyroidism, H/O Johnny thyroiditis, Iron deficiency anemia, Vitamin D deficiency, Encounter for screening mammogram for breast cancer (Renamed from Encounter for screening mammogram for malignant neoplasm of breast), Osteopenia, Encounter for screening for lipid disorder, Tinnitus [facility]; a guarantor
--- OUTSIDE RECORDS SUMMARY | 2018-03-24 19:59 | XMS RPT_ITS ---
:1965 Author Organization OHIP Care Team Providers Name Role Phone JADYN PATEL, [place] Attending Unavailable ALEXANDRE BARNHART MD Primary Care Unavailable Jay Guzman Attending Unavailable Alexandre Barnhart Primary Care Unavailable Jay Guzman Attending Unavailable Ashley Quijano PA-C Attending Unavailable Jay Guzman Attending Unavailable Alexandre Barnhart Referring Unavailable Joss, Alexandre Primary Care Unavailable Lee Froy Attending Unavailable Jay Guzman Referring Unavailable Shae Shore Attending Unavailable Mone, Shae Referring Unavailable Shae Shore Primary Care Unavailable Shae Shore Attending Unavailable Shae Shore Primary Care Unavailable PROBLEMS PROBLEMS DATE TYPE CONDITION / CODE ATTENDING STATUS SOURCE Unknown E21.0 - Primary Shae Shore Active [facility] 8 hyperparathyroidism / Community E21.0(ICD-10) Hospital Repository Unknown Z86.39 - Personal Shae Shore Active [facility] 8 history of other [facility] endocrine, nutritional Hospital and metabolic disease / Repository Z86.39(ICD-10) Unknown E55.9 - Vitamin D Shae Shore [facility] 8 deficiency, unspecified Community / E55.9(ICD-10) Hospital Repository Unknown D50.9 - Iron deficiency Shae Shore Active [facility] 8 anemia, unspecified / Community D50.9(ICD-10) Hospital Repository Unknown Z01.810 - Encounter for Froy Howard Active Lamar 8 preprocedural [facility] examination / Repository Z01.810(ICD-10) PROCEDURES PROCEDURES No Procedure Records FoundRESULTS RESULTS SCREENING MAMM (CAD), Observed: 02/10/2018 Status: F Source: WAYNE BILAT 7:01 AM [facility] REPOSITORY [facility] Imaging Services [address] [place] [address] SCREENING MAMM (CAD), BILAT MR#: [id number] Acct: [id number] Name: RAY ROSALES Rep #: [id number] : 1965 F 52 From: Jose Angel Conteh MD PCP: Shae Shore NP Status: REG CL Study: SCREENING MAMM (CAD), BILAT Date of Exam: 02/10/18 Exam# [id number] Ordering Dr: Shae Shore MAMMOGRAPHY - BILATERAL SCREENING REASON FOR EXAM: Female, 52 years old. Routine annual screening examination. PERTINENT HISTORY: Non-contributory. TECHNIQUE: Digital bilateral breast roya (3D mammographic acquisition) in the CC and MLO projections. 2-D mediolateral oblique (MLO) and craniocaudad (CC) views of both breasts were obtained. CAD: Full Field Digital Mammography with Computer Added Detection was performed. COMPARISON: Comparison is made with prior examination dated November 21, 2016 and November 21, 2015. FINDINGS: Breast Composition: The breasts are heterogeneously dense, which may obscure small masses. There are no dominant masses or suspicious calcifications. No other significant abnormalities are identified. There has been no significant change since the prior study. BI/SCREENING MAMM (CAD), BILAT IMPRESSION: Stable bilateral screening mammogram. Yearly follow-up mammogram recommended. (A) ASSESSMENT CATEGORY: BIRADS Category 1: Negative. A letter regarding these results will be sent to the patient by the facility within 30 days. Approximately 10% of breast cancers are not detected by mammography. A normal mammogram should not delay biopsy of a clinically suspicious abnormality. 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 CBC W/DIFF, AUTOMATED Collected: 01/02/2018 Status: F Source: [place] 7:28 AM [facility] REPOSITORY TYPE CODE TESTS RESULT OUT OF RANGE REFERENCE UNITS LAB L100.1000 4.4-11.0 K/mm3 Normal WBC 5.0 LAB L100.1200 4.2-5.4 M/mm3 Normal RBC 4.78 LAB L100.1300 12.0-15.0 g/dl Normal HGB 14.6 LAB L100.1400 37-47 % Normal HCT 43.3 LAB L100.1500 81-99 fL Normal MCV 90.6 LAB L100.1600 27.0-32.0 pg Normal MCH 30.5 LAB L100.1700 32-36 g/gl Normal MCHC 33.7 LAB L100.1810 11.6-14.6 % Normal RDW CV 13.5 LAB L100.1820 35.1-43.9 fl High RDW SD 44.1 LAB L100.1900 150-450 K/mm3 Normal PLT 295 LAB L100.2000 6.2-12.0 fl Normal MPV 9.6 LAB L100.2100 47-70 % Normal NEUT% 51.0 LAB L100.2200 19-41 % Normal LY% 38.4 LAB L100.2300 0-10 % Normal MONO% 7.2 LAB L100.2400 0-5 % Normal EO% 2.8 LAB L100.2500 0-1 % Normal BASO% 0.4 LAB L100.2550 0.0-0.9 % Normal IM GRAN % 0.200 Result Comment: IG% - Immature Granulocytes (promyelocytes, myelocytes and metamyelocytes) > 1% indicates that a LEFT SHIFT is Present. LAB L100.2620 2.0-7.7 X10 3/uL Normal Absolute Neut 2.5 LAB L100.2720 0.83-4.51 X10 3/ul Normal Absolute Lymph 1.91 Performed By: #### L100.0100 #### [facility] [address] [facility] [place], [address] PTHIN Collected: 01/02/2018 Status: F Source: WAYNE 7:28 AM [facility] REPOSITORY TYPE CODE TESTS RESULT OUT OF RANGE REFERENCE UNITS LAB L509.1000 18.4-80.1 pg/mL Normal PTHIN 54.0 Performed By: #### L509.1000 #### [facility] [address] [facility] [place], [address] VITAMIN B12 Collected: 01/02/2018 Status: F Source: WAYNE 7:28 AM [facility] REPOSITORY TYPE CODE TESTS RESULT OUT OF REFERENCE UNITS RANGE LAB L503.0105 211-911 pg/mL Low Vitamin B12 177 Performed By: #### L503.0105, L506.1000 #### [facility] [address] [place], [address] VITAMIN D,25 HYDROXY Collected: 01/02/2018 Status: F Source: WAYNE 7:28 AM [facility] REPOSITORY TYPE CODE TESTS RESULT OUT OF REFERENCE UNITS RANGE LAB L506.1000 29.95-100.01 ng/mL Low Vitamin D 29.9 25-OH Result Comment: Vitamin D 25(OH) Status Range Deficiency <20 ng/mL (50nmol/L) Insuffciency 20 - 30 ng/mL (50 - 75 nmol/L) Sufficiency 30 - 100 ng/mL (75 - 250 nmol/L) Toxicity >100 ng/mL (>250 nmol/L) Performed By: #### L503.0105, L506.1000 #### [facility] [address] [place], [address] COMPREHENSIVE METABOLIC Collected: 01/02/2018 Status: F [facility] RE[facility] Order Comment: Is Patient Taking Vitamins or Folic Acid Supplements? N TYPE CODE TESTS RESULT OUT OF RANGE REFERENCE UNITS LAB L501.0100 74-106 mg/dL Normal GLU 84 Result Comment: Please note revised GLUCOSE reference range effective 2017. LAB L501.1000 7-18 mg/dL Normal BUN 14 LAB L501.1100 0.55-1.02 mg/dL Normal CREAT,SERUM 0.65 Result Comment: The validity of the calculated GFR AND GFRAA in patients over 70 years has not been determined. Clinical correlation is essential. LAB L501.1110 >60 mL/min Normal EST GFR 101 Result Comment: Non- GFR Calc LAB L501.1115 >60 mL/min Normal EST GFR - AA 123 Result Comment: GFR Calc LAB L501.1300 10-20 RATIO High BUN/CRE 21.6 LAB L501.1500 6.4-8.2 g/dL T Normal PROT 7.5 LAB L501.1800 3.2-5.0 g/dL Normal ALB 3.7 LAB L501.1950 2.2-4.2 g/dL Normal GLOB 3.8 LAB L501.2000 0.9-2.4 RATIO Normal A/G 1.0 LAB L501.2200 8.5-10.1 mg/dL CA Normal 8.8 LAB L501.4100 15-37 U/L Normal AST 23 LAB L501.4305 45-117 U/L Normal ALK P 78 LAB L501.4405 13-56 U/L Normal ALT 27 LAB L501.4600 0.20-1.00 mg/dL T Normal BILI 0.80 LAB L501.5300 136-145 mmol/L NA Normal 142 LAB L501.5600 3.5-5.1 mmol/L K Normal 4.3 LAB L501.5900 98-107 mmol/L CL Normal 106 LAB L501.6100 21.0-32.0 mmol/L Normal CO2 29.0 LAB L501.6200 5-15 Normal GAP 7 Performed By: #### L500.4050, L500.4100, L501.82025, L501.9520, L503.6150, L506.0250, L506.0400 #### [facility] [address] [place], [address] LIPID PROFILE Collected: 01/02/2018 Status: F Source: [place]AM[place] 7:28 AM [facility] REPOSITORY Order Comment: Is Patient Taking Vitamins or Folic Acid Supplements? N TYPE CODE TESTS RESULT OUT OF RANGE REFERENCE UNITS LAB L501.4900 200 mg/dL Normal CHOL 137 Result Comment: <200 mg/dL Desirable 200-240 mg/dL Borderline >240 mg/dL High Risk LAB L501.5000 mg/dL Normal TRIG 112 Result Comment: The drugs N-Acetylcysteine and Metamizole may falsely depress this assay. Serum Triglycerides Reference Interval Normal <150 mg/dL Borderline high 150 - 199 mg/dL High 200 - 499 mg/dL Very High > or = 500 mg/dL LAB L501.6400 mg/dL Normal HDL 44 Result Comment: The drugs N-Acetylcysteine and Metamizole may falsely depress this assay. Reference Range HDL <40 mg/dL Low HDL Cholesterol HDL >or= 60 mg/dL High HDL Cholesterol LAB L501.6500 0-130 mg/dL Normal LDL 71 LAB L501.6600 5-40 mg/dL Normal VLDL 22 Performed By: #### L500.4050, L500.4100, L501.47160, L501.9520, L503.6150, L506.0250, L506.0400 #### [facility] [address] [place], [place], [address] FREE T3 Collected: 01/02/2018 Status: F Source: WAYNE 7:28 AM [facility] REPOSITORY Order Comment: Is Patient Taking Vitamins or Folic Acid Supplements? N TYPE CODE TESTS RESULT OUT OF RANGE REFERENCE UNITS LAB L501.90409 2.18-3.98 pg/mL Normal FREE T3 2.8 Performed By: #### L500.4050, L500.4100, L501.85202, L501.9520, L503.6150, L506.0250, L506.0400 #### [facility] [place], [place], [id number] THYROID STIM HORMONE Collected: 01/02/2018 Status: F Source: WAYNE (TSH) 7:28 AM [facility] REPOSITORY Order Comment: Is Patient Taking Vitamins or Folic Acid Supplements? N TYPE CODE TESTS RESULT OUT OF RANGE REFERENCE UNITS LAB L501.9520 0.358-3.74 uIU/mL Normal TSH 2.26 Performed By: #### L500.4050, L500.4100, L501.05750, L501.9520, L503.6150, L506.0250, L506.0400 #### [facility] [address] [place], [place], [address] IRON Collected: 01/02/2018 Status: F Source: WAYNE 7:28 AM [facility] REPOSITORY Order Comment: Is Patient Taking Vitamins or Folic Acid Supplements? N TYPE CODE TESTS RESULT OUT OF RANGE REFERENCE UNITS LAB L503.6150 50-170 ug/dL Normal IRON 99 Performed By: #### L500.4050, L500.4100, L501.14063, L501.9520, L503.6150, L506.0250, L506.0400 #### [facility] [address] [facility] [place], [address] FOLATES, (FOLIC ACID) Collected: 01/02/2018 Status: F Source: WAYNE 7:28 AM [facility] REPOSITORY Order Comment: Is Patient Taking Vitamins or Folic Acid Supplements? N TYPE CODE TESTS RESULT OUT OF RANGE REFERENCE UNITS LAB L506.0250 3.1-55.4 ng/mL Normal FOLATES 28.20 Performed By: #### L500.4050, L500.4100, L501.89327, L501.9520, L503.6150, L506.0250, L506.0400 #### [facility] [address] [place], [address] T4 FREE DIRECT Collected: 01/02/2018 Status: F Source: WAYNE 7:28 AM [facility] REPOSITORY Order Comment: Is Patient Taking Vitamins or Folic Acid Supplements? N TYPE CODE TESTS RESULT OUT OF RANGE REFERENCE UNITS LAB L506.0400 0.76-1.46 ng/dL Normal T4 FREE 0.95 DIRECT Performed By: #### L500.4050, L500.4100, L501.67785, L501.9520, L503.6150, L506.0250, L506.0400 #### [facility] [address] [facility] [place], [address] CAION Collected: 09/25/2017 Status: F Source: [facility] 7:37 AM [facility] REPOSITORY TYPE CODE TESTS RESULT OUT OF REFERENCE UNITS RANGE LAB CAION(LOINC 1.12-1.32 mmol/L ) Calcium 1.17 Ionized Performed By: #### CAION, PHOS, GFR, TSH, FT4, FT3, CMP, 125VTD #### [facility] [address] [place], [place] [address] #### PTH, MCRSO #### [address] [address] PHOS Collected: 09/25/2017 Status: F Source: [facility] 7:37 AM [facility] REPOSITORY TYPE CODE TESTS RESULT OUT OF REFERENCE UNITS RANGE LAB PHOS(LOINC 2.7-4.5 mg/dL ) Phosphorus 3.3 Performed By: #### CAION, PHOS, GFR, TSH, FT4, FT3, CMP, 125VTD #### [place] [address] [place], [place] [address] #### PTH, MCRSO #### [facility] [address] [place] [address] .GFR Collected: 09/25/2017 Status: F Source: [facility] 7:37 AM [facility] REPOSITORY TYPE CODE TESTS RESULT OUT OF REFERENCE UNITS RANGE LAB GFRAA(LOINC ml/min/1.73 ) sqm GFR >60 Cameroonian Result Comment: GFR Population mean for , Non- Americans Ages 20-29 = 116 mL/min/1.73 sq.m. Ages 30-39 = 107 mL/min/1.73 sq.m. Ages 40-49 = 99 mL/min/1.73 sq.m. Ages 50-59 = 93 mL/min/1.73 sq.m. Ages 60-69 = 85 mL/min/1.73 sq.m. Ages 70+ = 75 mL/min/1.73 sq.m. Chronic Kidney Disease: Less than 60 mL/min/1.73 square meters End Stage Renal Disease: Less than 15 mL/min/1.73 square meters LAB GFRNO(LOINC) ml/min/1.73sqm GFR Non- >60 Result Comment: GFR Population mean for , Non- Americans Ages 20-29 = 116 mL/min/1.73 sq.m. Ages 30-39 = 107 mL/min/1.73 sq.m. Ages 40-49 = 99 mL/min/1.73 sq.m. Ages 50-59 = 93 mL/min/1.73 sq.m. Ages 60-69 = 85 mL/min/1.73 sq.m. Ages 70+ = 75 mL/min/1.73 sq.m. Chronic Kidney Disease: Less than 60 mL/min/1.73 square meters End Stage Renal Disease: Less than 15 mL/min/1.73 square meters Performed By: #### CAION, PHOS, GFR, TSH, FT4, FT3, CMP, 125VTD #### [facility] [address] [place] [address] #### PTH, MCRSO #### [address] [address] PTH Collected: 09/25/2017 Status: F Source: [facility] 7:37 [facility] REPOSITORY TYPE CODE TESTS RESULT OUT OF REFERENCE UNITS RANGE LAB PTH(LOINC) 18.5-88.0 pg/mL PTH, Intact 66.6 Performed By: #### CAION, PHOS, GFR, TSH, FT4, FT3, CMP, 125VTD #### [address] [address] #### PTH, MCRSO #### [place] [address] TSH Collected: 09/25/2017 Status: F Source: [facility] 7:37 [facility] REPOSITORY TYPE CODE TESTS RESULT OUT OF RANGE REFERENCE UNITS LAB TSH(LOINC) 0.27-4.20 mcIU/mL TSH 2.66 Performed By: #### CAION, PHOS, GFR, TSH, FT4, FT3, CMP, 125VTD #### [address] [address] #### PTH, MCRSO #### [place] [address] FT4 Collected: 09/25/2017 Status: F Source: [facility] 7:37 [facility] REPOSITORY TYPE CODE TESTS RESULT OUT OF RANGE REFERENCE UNITS LAB FT4(LOINC) 0.6-1.7 ng/mL Free T4 1.0 Performed By: #### CAION, PHOS, GFR, TSH, FT4, FT3, CMP, 125VTD #### [address] [address] #### PTH, MCRSO #### [place] [address] FT3 Collected: 09/25/2017 Status: F Source: [facility] 7:37 [facility] REPOSITORY TYPE CODE TESTS RESULT OUT OF RANGE REFERENCE UNITS LAB FT3(LOINC) 2.3-4.0 pg/mL Free T3 3.2 Performed By: #### CAION, PHOS, GFR, TSH, FT4, FT3, CMP, 125VTD #### [address] [address] #### PTH, MCRSO #### [address] [address] CMP Collected: 09/25/2017 Status: F Source: [facility] 7:37 AM [facility] REPOSITORY TYPE CODE TESTS RESULT OUT OF REFERENCE UNITS RANGE LAB GLU(LOINC) 70-105 mg/dL Glucose Level 91 LAB NA(LOINC) 136-146 mEq/L Sodium Level 140 LAB K(LOINC) 3.5-5.1 mEq/L Potassium Level 5.1 LAB CL(LOINC) 98-107 mEq/L Chloride 103 LAB CO2(LOINC) 22-29 mEq/L CO2 26 LAB EBAL(LOINC mEq/L ) Electrolyte Balance 11.0 LAB BUN(LOINC) 7.0-18.0 mg/dL BUN 16.4 LAB CRE(LOINC) 0.6-1.2 mg/dL Creatinine Lvl (s) 0.7 LAB BC(LOINC) 7-27 ratio BUN/Creatinine 23 Ratio LAB CA(LOINC) 8.4-10.2 mg/dL Calcium Lvl 9.4 LAB PROT(LOINC 6.0-8.3 G/dL ) Total Protein 7.3 LAB ALB(LOINC) 3.5-5.0 G/dL Albumin Level 4.4 LAB GLB(LOINC) G/dL Globulin 2.9 LAB AG(LOINC) 1.1-2.5 ratio A/G Ratio 1.5 LAB BILT(LOINC 0.2-1.0 mg/dL ) Bili Total 0.9 LAB AP(LOINC) 40-135 IU/L Alk Phos 72 LAB AST(LOINC) 10-40 IU/L AST/SGOT 25 LAB ALT(LOINC) 10-35 IU/L ALT/SGPT 18 Performed By: #### CAION, PHOS, GFR, TSH, FT4, FT3, CMP, 125VTD #### [address] [place], [place] [address] #### PTH, MCRSO #### [address] [address] VIDDH Collected: 09/25/2017 Status: F Source: [facility] 7:37 AM [facility] REPOSITORY TYPE CODE TESTS RESULT OUT OF RANGE REFERENCE UNITS LAB VIDDH(LOINC 15.0-60.0 pg/mL ) Vit. D 35.1 1,25 Dihydro. Result Comment: This test was developed and its performance characteristics determined by [facility] Path[facility] Medicine [place] [facility] It has not been cleared or approved by the FDA. [facility] is regulated under CLIA as qualified to perform high-complexity testing. This test is used for clinical purposes. It should not be regarded as investigational or for research. Performed By: [place] [address] Pipe Finisher: Luisa Elliott M.D. CLIA#: [id number] Phone#: LAB 125D2(LOINC) pg/mL Vitamin D2 1,25 <4.0 Result Comment: Performed By: [place] [address] Pipe Finisher: Luisa Elliott M.D. CLIA#: [id number] Phone#: LAB 125D3(LOINC) pg/mL Vitamin D3 1,25 35.1 Result Comment: Performed By: [place] [address] Pipe Finisher: Luias Elliott M.D. CLIA#: [id number] Phone#: Performed By: #### CAION, PHOS, GFR, TSH, FT4, FT3, CMP, 125VTD #### [facility] [address] [place], [place] [address] #### PTH, MCRSO #### [address] [address] MCR Collected: 09/25/2017 Status: F Source: [facility] 7:37 AM [facility] REPOSITORY TYPE CODE TESTS RESULT OUT OF REFERENCE UNITS RANGE LAB MCRSO(LOIN 0-35 IU/mL C) High Microsomal Ab 731 Result Comment: This result represents Anti-TPO antibodies which are synonymous with microsomal antibodies. Performed By: #### CAION, PHOS, GFR, TSH, FT4, FT3, CMP, 125VTD #### [address] [address] #### PTH, MCRSO #### [address] [address] CRUR Collected: 09/25/2017 Status: F Source: [facility] 7:37 AM [facility] REPOSITORY TYPE CODE TESTS RESULT OUT OF REFERENCE UNITS RANGE LAB CRU(LOINC) 28.0-217.0 mg/dL U Creatinine 180.3 Performed By: #### CRUR #### [address] [address] #### CAUR #### [address] [address] CAUR Collected: 09/25/2017 Status: F Source: [facility] 7:37 AM [facility] REPOSITORY TYPE CODE TESTS RESULT OUT OF REFERENCE UNITS RANGE LAB CAU(LOINC) mg/dL U Calcium <5.0 Performed By: #### CRUR #### [address] [address] #### CAUR #### [address] [address] SURGERY VISIT REPORT Observed: 03/18/2017 Status: F Source: WAYNE 4:17 PM [facility] REPOSITORY [facility] [address] [place] [address] OFFICE VISIT Date of Service: 03/14/17 MR#: [id number] Acct: [id number] Name: RAY ROSALES Rep #: [id number] : 1965 Provider: Jay Guzman MD Age/Sex: 51/F Location: [facility] Status: Signed Intake Intake Visit Reasons: F/U REMOVAL OF LEFT PARATHYROID 03/04/2017 Chief Complaint: f/u left parathyroidectomy 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 Is patient in pain?: No Allergies No Known Allergies Allergy (Verified 03/14/17 08:42) Medications cholecalciferol (vitamin D3) 400 unit capsule 400 unit PO QDAY 02/27/17 [History Confirmed 03/14/17] ferrous sulfate 325 mg (65 mg iron) tablet 325 mg PO QDAY tab 02/27/17 [History Confirmed 03/14/17] Is last menstrual period known: No Patient : No PFSH Medical History Anemia (Acute) Tricuspid valve regurgitation (Acute) Surgical History S/P section (Acute) S/P colonoscopy (Acute) S/P subtotal parathyroidectomy (Acute) Family History Father Hypertension Mother Thyroid disorder Sister Thyroid disorder HPI HPI HPI: RAY ROSALES, is a 51 F who presents to the office today for undergoing a left parathyroid adenoma excision. The surgery was completed on 03/04/2017. 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 I also took out to reactive lymph nodes which were also benign. Exam Neck Other: Incision is clean and dry without signs of infection superglue is still in place. Assessment AND Plan Problems 1. Other specified postprocedural states Z98.890 Plan Patient's PTH was normal after surgery. She can follow-up with me on an as-needed basis. 03/18/17 [id number] <Electronically signed by Jay Guzman MD> Date [facility] Signature: Date (if applicable) CC: Alexandre Barnhart MD 12 LEAD ELECTROCARDIOGRAM Observed: 03/12/2017 Status: F Source: [place] 9:40 AM [facility] REPOSITORY [facility] Cardiovascular Services [address] [place] [address] 12 Lead EKG 03/04/17 1221 MR#: [id number] Acct: [id number] Name: RAY ROSALES Edie Rep #: [id number] : 1965 51 From: Froy Howard MD Attending Dr: Jay Guzman MD Status: DEP [facility] Ordering Dr: Bro Dunham MD Date: 03/04/17 Location: [facility] [place] Sex: F C Admitted: Test Reason : PREOP Blood Pressure : / mmHG Vent. Rate : 070 BPM Atrial Rate : 070 BPM P-R Int : 134 ms QRS Dur : 090 ms QT Int : 392 ms P-R-T Axes : 078 086 073 degrees QTc Int : 423 ms Normal sinus rhythm with sinus arrhythmia Normal ECG No previous ECGs available Confirmed by FROY HOWARD MD ([id number]), metropolitan editor JEANCARLOS HESTER ([id number]) on 03/12/2017 9:39:53 AM Referred By: Confirmed By:FROY HOWARD MD 03/12/17 0939 Date Froy Howard MD CC: Alexandre Barnhart MD Signed DISCHARGE INSTRUCTION Observed: 03/05/2017 Status: F Source: WAYNE 7:20 AM [facility] REPOSITORY [facility] Medical Records Department [address] [place] [address] Instructions for Home/Discharge Instructions 03/05/17 0719 MR#: [id number] Acct: [id number] Name: RAY ROSALES Rep #: [id number] : 1965 51 From: Ashley Quijano PA-C PCP: Alexandre Barnhart MD Status: REG [facility] [place] Discharge Diet: Light diet - advance as tolerated Discharge Activity: May Not Drive - 5 days May shower in (days): 1 Lifting Restrictions: 10 pounds Call your doctor if your incision/area has: Continuous Slow Oozing, Sudden Increased Bleeding, Increased Pain/ Swelling, Increased Redness, Foul Smelling Discharge, Swelling at the incision site Call your doctor if you observe: Fever of 101 or Higher, Coldness, Increased Pain Suture Line Care: Avoid Pulling/Pushing, Avoid Pinching/Bending Cleanse incision/area with: Soap AND Water Allergies/Adverse Reactions: Allergies No Known Allergies Allergy (Verified 03/03/17 09:19) Medications to take at Discharge cholecalciferol (vitamin D3) 400 unit capsule 400 unit PO QDAY 02/27/17 ferrous sulfate 325 mg (65 mg iron) tablet 325 mg PO QDAY tab 02/27/17 Oxycodone [Oxyir] 5 - 10 mg PO Q4H PRN PRN #5 tab 03/05/17 The following prescriptions were given: Oxycodone [Oxyir] 5 - 10 mg PO Q4H PRN PRN #5 tab PRN Reason: Pain Primary Care Physician: Alexandre Barnhart MD [Primary Care Provider] - Please Follow Up With: Jay Guzman MD - [phone] When: 10 days Proposed Discharge Date: 03/05/17 03/05/17719 <Electronically signed by Ashley Quijano PA-C> Date Ashley Quijano PA-C CC: Alexandre Barnhart MD OPERATIVE REPORT Observed: 03/04/2017 Status: F Source: WAY[place] 4:02 PM [facility] REPOSITORY [facility] Medical Records Department [address] [place] [address] Operative Report 03/04/17 1322 MR#: [id number] Acct: [id number] Name: RAY ROSALES Rep #: [id number] : 1965 51 From: Jay Guzman MD PCP: Alexandre Barnhart MD Status: [facility] Location: [address] Report of Operation Date of Procedure: 03/04/17 Pre-Operative Diagnosis: E21.0 Primary hyperparathyroidism Post-Operative Diagnosis: same Surgery/Procedure Performed:: 16931 Excision of left inferior parathyroid adenoma pick up: None Type of Anesthesia:: General Anesthesiologist: Sukumar Faith Estimated Blood Loss (mL): < 25 cc Fluids Replaced: 1L Description of Procedure: Patient was brought into the operating room placed in the supine position. Under excellent general endotracheal intubation towel was placed underneath the shoulder blades and neck was extended and sterilely prepped and draped. Local was injected. Cervical incision was made. Subplatysmal flaps were created with the use of electrocautery. Gelpi retractor was placed in the wound. Midline strap muscles were opened. I dissected the thyroid gland off of the strap muscles. I dissected inferiorly dissecting up tissue inferior to the thyroid gland. There were 2 separate pieces of tissue that I sent off for frozen section which came back as fatty tissue with some small lymphoid tissue. I dissected all the way down and identified the recurrent laryngeal nerve. I dissected between the carotid and the esophageal groove. I was unable to identify anything that looked like parathyroid tissue here. I then went back to the thyroid gland. I dissected tissue off of the thyroid gland. The patient was noted to have a intrathyroidal parathyroid adenoma. I dissected this completely free. I sent it to pathology for frozen section which did indeed come back as parathyroid tissue. It was 1.2 cm in greatest diameter. I yusuf blood for an immediate PTH. However the machine to calculate this was not working properly. I made a determination that I did indeed identify and remove the parathyroid adenoma. A piece of Surgicel was placed in the operating cavity. I had good hemostasis. Midline strap muscles were closed with a 2-0 Vicryl. Platysma was brought together with a 3-0 Vicryl. Skin was brought together with a 4-0 Monocryl. Dermabond was applied. Sterile dressings were applied. The patient tolerated the procedure well. - Admit VTE Documentation VTE Present on Admission: No VTE Mechan Device Prophylaxis: SCD's VTE Pharm Prophylaxis ordered?: No Reason prophylaxis not ordered:: Treatment Not Indicated Code Visit 60xxx-69xxx: Other Procedure See Report - 91374 parathyroidectomy 03/04/17 1602 <Electronically signed by Jay Guzman MD> Date Jay Guzman MD CC: Jay Guzman MD; Alexandre Barnhart MD Signed PTHIN Collected: 03/04/2017 Status: F Source: LAMAR 2:26 PM [facility] REPOSITORY Order Comment: PER MARCELO IN OR#4 SPECIMEN TO BE DRAWN AT CERTAIN TIME. LAB NOTIFIED OR THAT INSTRUMENT IS DOWN AT THIS TIME AND WE DO NOT KNOW WHEN IT WILL BE FIXED. [address] [facility] TYPE CODE TESTS RESULT OUT OF RANGE REFERENCE UNITS LAB L509.1000 18.4-80.1 pg/mL Normal PTHIN 22.9 Result Comment: Please Note: PTH INTACT METHOD AND REFERENCE RANGE CHANGE Effective 03/05/2017. Performed By: #### L509.1000 #### [facility] [address] [place], [place], [address] CBC-COMPLETE BLOOD CNT Collected: 03/04/2017 Status: F Source: LAMAR NO DIFF 12:50 PM [facility] REPOSITORY TYPE CODE TESTS RESULT OUT OF RANGE REFERENCE UNITS LAB L100.1000 4.4-11.0 K/mm3 Normal WBC 6.3 LAB L100.1200 4.2-5.4 M/mm3 Normal RBC 4.24 LAB L100.1300 12.0-15.0 g/dl Low HGB 11.8 LAB L100.1400 37-47 % Low HCT 35.3 LAB L100.1500 81-99 fL Normal MCV 83.3 LAB L100.1600 27.0-32.0 pg Normal MCH 27.8 LAB L100.1700 32-36 g/gl Normal MCHC 33.4 LAB L100.1810 11.6-14.6 % Normal RDW CV 14.5 LAB L100.1820 35.1-43.9 fl Normal RDW SD 42.6 LAB L100.1900 150-450 K/mm3 Normal PLT 333 LAB L100.2000 6.2-12.0 fl Normal MPV 9.7 Performed By: #### L100.0500 #### [facility] [address] [place], [place], [address] PROTHROMBIN TIME W/INR Collected: 03/04/2017 Status: F Source: LAMAR 12:50 PM [facility] REPOSITORY TYPE CODE TESTS RESULT OUT OF RANGE REFERENCE UNITS LAB L300.4150 11.7-14.9 SECONDS Normal PROTIME 13.3 LAB L300.4200 Normal INR 1.1 Performed By: #### L300.3900, L300.4310, L400.7600 #### [facility] [address] [place], [address] PARTIAL THROMBOPLAST Collected: 03/04/2017 Status: F Source: LAMAR TIME 12:50 PM [facility] REPOSITORY TYPE CODE TESTS RESULT OUT OF RANGE REFERENCE UNITS LAB L300.4310 24.1-36.2 Seconds Normal PTT 28.1 Performed By: #### L300.3900, L300.4310, L400.7600 #### [facility] [address] [place], [address] THYROID STIM HORMONE Collected: 03/04/2017 Status: F Source: LAMAR (TSH) 12:50 PM [facility] REPOSITORY TYPE CODE TESTS RESULT OUT OF RANGE REFERENCE UNITS LAB L501.9520 0.358-3.74 uIU/mL Normal TSH 1.90 Performed By: #### L501.9520 #### [facility] [address] [place], [address] ,URINE Collected: 03/04/2017 Status: F Source: LAMAR 12:20 PM [facility] REPOSITORY TYPE CODE TESTS RESULT OUT OF REFERENCE UNITS RANGE LAB L400.8000 Negative Normal HCGUQUAL Negative Result Comment: Very dilute urine specimens, as indicated by a low specific gravity, may not contain statement services representative levels of hCG. If is still suspected, a first morning urine specimen should be collected 48 hours later and tested. Performed By: #### L300.3900, L300.4310, L400.7600 #### [facility] [address] [place], [address] THYROID (TOTAL/LOBE) Observed: 03/04/2017 Status: F Source: LAMAR 12:00 AM [facility] REPOSITORY Patient: RAY ROSALES : 1965 (51/F) Acct Num: [id number] Phys: Megan PATEL,Jay Unit Num: [id number] Loc: [facility] [place] Specimen: [id number] Received: 03/04/17 6530 Spec Type: THYROID TISSUES TISSUES: A. Parathyroid - LEFT B. Parathyroid - LEFT C. Parathyroid - LEFT FROZEN SECTION DIAGNOSIS A. Left parathyroid, inferior, biopsy: Fatty tissue and lymph node tissue. Parathyroid tissue is not seen. B. Additional left inferior parathyroid tissue, biopsy: Fatty tissue and lymph node tissue. No parathyroid tissue is noted. C. Additional left parathyroid tissue, biopsy: Hyperplastic parathyroid tissue. Fatty tissue and lymph node tissue. LAST:cierra 03/04/17 GROSS DESCRIPTION A - Received fresh for frozen section diagnosis labeled with the patient's name is a specimen designated left parathyroid inferior. The specimen consists of a piece of pink soft tissue measuring 1.5 x 1 x 0.3 cm and weighing 0.5 gm. The entire specimen is submitted for frozen section diagnosis in one cassette. B - Received fresh for frozen section diagnosis labeled with the patient's name is a specimen designated additional left inferior parathyroid tissue. The specimen consists of a piece of pink-red soft tissue measuring 1.5 x 1.5 x 0.5 cm and weighing 1 gm. The specimen is bisected and submitted entirely for frozen section diagnosis in one cassette. C - Received fresh for frozen section diagnosis labeled with the patient's name is a specimen designated additional left parathyroid tissue. The specimen consists of two pieces of pink-red soft tissue. One of the pieces has a nodular appearance and weighs 0.4 gm and measures 1.2 x 1 x 0.5 cm. This piece is bisected. Also present in the container is a piece of pink- red soft tissue weighing 0.5 gm and measuring 1.5 x 1.5 x 0.4 cm. The entire specimen is submitted for frozen section diagnosis in two cassettes. Cassette 2 contains the nodular piece of tissue. / LAST:cierra 03/04/17 TC:5 CPT: 73700 x3, 84484 x3, 04905 HEADER OPERATION: Excision of left inferior parathyroid adenoma PRE-OP DIAGNOSIS: Primary hyperparathyroidism TISSUE SUBMITTED: A Left parathyroid, inferior, biopsy, B - Additional left inferior parathyroid tissue, biopsy, C - Additional left parathyroid tissue, biopsy MICROSCOPIC DESCRIPTION Slides are reviewed. MICROSCOPIC DIAGNOSIS A. Left parathyroid, inferior, biopsy: Benign lymph nodes with reactive changes. Fatty tissue. Parathyroid tissue is not seen. B. Additional left inferior parathyroid tissue, biopsy: Benign lymph nodes with reactive changes. Fatty tissue. Parathyroid tissue is not seen. C. Additional left parathyroid tissue, biopsy: Hyperplastic parathyroid tissue (0.4 gm, 1.2 x 1 x 0.5 cm). Benign lymph nodes with reactive changes. LAST:cierra 03/05/17 Signed Iain Green 03/05/17 <signature on file> Performed By: #### PTHYROID #### [facility] [address] [place], [address] ALLERGIES ALLERGIES DATE TYPE / CODE NAME / CODE REACTION SEVERITY SOURCE 03/14/2017 Drug No Known Unknown [facility] Allergy/4160 Allergies/F00 Hospital 49078(SNOMED 0473790(RXNOR Repository CT) M) ENCOUNTERS ENCOUNTERS ADMIT/DISCHARGE ACCOUNT NUMBER ADMITTING ENCOUNTER LOCATION SOURCE CLASS 02/10/2018 [id number] Ambulatory [facility] ding:OPBI Repository 01/02/2018 [id number] Ambulatory [facility] ding:LAB.FUT Repository URE 09/25/2017/09/26/19 [id number] Ambulatory [address] ding:OLAB [facility] Repository 03/14/2017/03/14/20 [id number] Ambulatory BMSBuilding: [address] Repository 03/05/2017 [id number] Ambulatory [facility] Repository 03/04/2017/03/05/20 [id number] Ambulatory [address] ding:SDCRoom Repository : MS218 03/04/2017 [id number] Ambulatory BMSBuilding: [facility] Repository 03/04/2017 [id number] Ambulatory BMSBuilding: [facility] Repository PAYERS PAYERS ENCOUNTER GUARANTOR PAYER SUBSCRIBER SOURCE 02/10/2018 RAY E Primary RAY E Lamar [id number] Insurance:MEDICAL KAUFMANDOB: [facility] [id number] Number: Repository [id number]: [phone] [id number] [phone] () Date:1205-73-90PL [address] [place] [id number]: 02/10/2018 Secondary NOT GIVENUNK Bryant Insurance:SELF PAY [facility] Number: Effective Repository Date:2017-12-31 01/02/2018 RAY E Primary RAY E Bryant [id number] Insurance:MEDICAL KAUFMANDOB: [facility] [id number] Number: Repository [id number]: [phone] [id number] [phone] () Date:2125-70-54KZ [address] [place] [id number]: 01/02/2018 Secondary NOT GIVENUNK Lamar Insurance:SELF PAY [facility] Number: Effective Repository Date:2018-01-01 09/25/2017 RAY E Primary RAY E Shira [facility] KAUFMANDOB: Insurance:MEDICAL KAUFMANDOB: [facility] [address] [id number] [place] [address] Number: [address] [place], [place] [id number] [place], [place] [address]Qws: ([phone]) Date:2017-09-25 284[address]Tju: () [id number] [phone] Name:LINDA ORTEGA ()Tel: [phone] [address] [place] [address] [phone] () 16711IZ: 03/14/2017 ARY E Primary RAY E Bryant [id number] Insurance:MEDICAL KAUFMANDOB: [facility] [id number] Number: Repository [id number]: [phone]) [id number] [phone] () Date:9666-92-11UG [address] [place] [phone]: 03/14/2017 Secondary NOT GIVENUNK Bryant Insurance:SELF PAY [facility] Number: Effective Repository Date:2017-03-11 03/05/2017 RAY E Primary RAY E Bryant [id number] Insurance:MEDICAL KAUFMANDOB: [facility] [id number] Number: Repository [id number]: 330 [id number] [phone] (HP) Date:0227-87-51AN [address] [place] [address]RJ: 03/05/2017 Secondary NOT GIVENUNK Bryant Insurance:SELF PAY [facility] Number: Effective Repository Date:2017-03-05 03/04/2017 RAY E Primary RAY E Lamar [id number] Insurance:MEDICAL KAUFMANDOB: [facility] [id number] Number: Repository [id number]: [phone] [id number] [phone] (HP) Date:5177-44-94QD [address] [place] [address]QD: 03/04/2017 Secondary NOT GIVENUNK Bryant Insurance:SELF PAY [facility] Number: Effective Repository Date:2017-02-27 03/04/2017 RAY E Primary RAY E Bryant [id number] Insurance:MEDICAL KAUFMANDOB: [facility] [id number] Number: Repository [id number]: 330 [id number] [phone] () Date:4776-90-10PX [address] [place] [id number]: 03/04/2017 Secondary NOT GIVENUNK Bryant Insurance:SELF PAY [facility] Number: Effective Repository Date:2017-03-04 03/04/2017 RAY E Primary RAY E Bryant [id number] Insurance:MEDICAL KAUFMANDOB: [facility] [id number] Number: Repository [id number]: [phone] [id number] [phone] (HP) Date:2634-93-00AM [address] [phone]: 03/04/2017 Secondary NOT GIVENUNK Bryant Insurance:SELF PAY [facility] Number: Effective Repository Date:2017-03-04
== END ==
PROVIDERS: Family Provider Nurse Practitioner; PCP Nurse Practitioner; Visit Provider Nurse Practitioner
DX: Z12.31 Encounter for screening mammogram for malignant neoplasm of breast (principal)
CPT/HCPCS: 77063; 77067

== ENCOUNTER 2018-09-11 20:13 | Emergency (ER) | payer OTHER, SELFPAY ==
[2018-09-11 20:14] VITALS: BP 135/89; PULSE 93; RESP 16; TEMP 36.6; O2SAT 98; BMI 23.5
--- NOTE | 2018-09-11 20:19 | EKG12_ITS ---
Test Reason : GENERAL ILLNESS Blood Pressure : / mmHG Vent. Rate : 081 BPM Atrial Rate : 081 BPM P-R Int : 130 ms QRS Dur : 088 ms QT Int : 396 ms P-R-T Axes : 071 082 074 degrees QTc Int : 460 ms Normal sinus rhythm with sinus arrhythmia Normal ECG Confirmed by GALINDO PATEL, SCOTTIE ([id number]), editor sound ANNIE HILLIARD ([id number]) on 09/14/2018 1:31:28 PM Referred By: JACQUELINE Confirmed By:SCOTTIE MEDLEY MD
--- NOTE | 2018-09-11 21:28 | ED.DCSUM_ITS ---
- ER Visit Summary Date of Service: 09/11/18 Chief Complaint: Pressure in throat/throat tightness History of Present Illness: The patient is a 53 F with history of Johnny's thyroiditis and a parathyroid ectomy who presents for 10 days of throat tightness. Patient states that it feels like the lower part of her throat is tight, with radiation around to the sides. Today she is having the discomfort extend to the clavicles. Sometimes she finds it difficult to swallow. This started 10 days ago with a regular sore throat and swollen glands. 5 days ago she had her thyroid function checked and states it was normal. She denies fever, chest pain, shortness of breath, abdominal pain, nausea vomiting, cough or any other symptoms other than the lower throat discomfort. Physical Examination: Vital signs: afebrile, hemodynamically stable, no hypoxia on room air General: well nourished, well developed, in no distress Skin: warm, dry, no rash, no pallor HEENT: normocephalic and atraumatic; PERRL, EOMI, moist mucous membranes, no oropharyngeal lesions or swelling, no submandibular or sublingual fullness, patient has tender anterior cervical lymphadenitis bilaterally, 1 palpable nodule either lymph node or related to the thyroid, no obvious goiter, neck is supple and nontender Cardiovascular: regular rate and rhythm without murmurs, no peripheral edema, 2+ pulses all distal extremities Respiratory: No increased work of breathing, lungs are clear to auscultation bilaterally, no rales, rhonchi or wheezing Abdominal: Abdomen is soft, nontender with normoactive bowel sounds, no guarding or rebound, no masses MSK: Moves all extremities, no deformities, normal strength Neuro: Awake and alert, oriented ?4. No facial droop, sensation and motor function intact and symmetric Test Results: Abnormal Lab Results 09/11/18 09/11/18 09/11/18 21:00 21:00 23:20 WBC 6.0 RBC 4.73 Hgb 15.2 H Hct 42.2 MCV 89.2 MCH 32.1 H MCHC 36.0 RDW 12.4 RDW Differential 39.9 Plt Count 268 MPV 9.1 Immature Gran % (Auto) 0.200 Neut % (Auto) 49.7 Lymph % (Auto) 40.0 [place] % (Auto) 7.3 Eos % (Auto) 2.3 Baso % (Auto) 0.5 Absolute Neuts (auto) 3.0 Absolute Lymphs (auto) 2.40 Total Counted Not Reportable Sodium 138 Potassium 3.6 Chloride 105 Carbon Dioxide 29.0 Anion Gap 4 L BUN 16 Creatinine 0.78 Estim Creat Clear Calc 80.18 Est GFR (MDRD) Af Amer 98 Est GFR (MDRD) Non-Af 81 BUN/Creatinine Ratio 20.4 H Glucose 101 Calcium 8.7 Magnesium 1.9 Total Bilirubin 0.70 AST 27 ALT 32 Alkaline Phosphatase 75 Troponin I < 0.015 < 0.015 Total Protein 7.7 Albumin 3.8 Globulin 3.9 Albumin/Globulin Ratio 1.0 TSH 6.87 H Free T4 0.99 Clinical Impression(s) from Imaging Studies Chest X-Ray 09/11/18 21:35 IMPRESSION: No acute cardiopulmonary disease. Electronically Signed: Jose Steele DO at 21:54 EDT Tel [phone], Service support , Medications Given Discontinued Medications Aspirin (Aspirin, Baby) 324 mg PO X1 ONE Stop: 09/11/18 22:42 Last Admin: 09/11/18 23:19 Dose: 324 mg Documented by: JARRET Sodium Chloride () 1,000 mls @ 1,000 mls/hr IV .Q1H ONE Stop: 09/11/18 22:23 Last Admin: 09/11/18 22:06 Dose: 1,000 mls/hr Documented by: VALARIE Emergency Department Course and Treatment: Patient presents with a sensation of throat tightness and fullness mainly in the lower anterior neck. She does have a history of Johnny's thyroiditis, making thyroid inflammation or developing goiter on the differential. She also though did have sore throat and some tender lymphadenopathy, making an infectious pharyngitis also on the differential. Labs were checked showing normal CBC and BMP. Troponin was negative. TSH was elevated at 6.87 and free T4 was within the lower limit of normal. EKG showed no ischemic changes. Chest x-ray showed no acute process. On reevaluation, patient stated that the discomfort was more in the upper chest now, which is different from her initial complaint. At this point the concern for chest tightness makes cardiac etiology on the differential. She has had the symptoms for several days, however now is stating it is more in the chest, thus a 3-hour troponin and EKG were repeated. Patient has no risk factors for coronary artery disease other than her age. Repeat EKG was unchanged and tropo jamel negative. Patient had been given aspirin during the chest pain work-up. Patient was advised to follow-up with her primary care doctor for further evaluation of her thyroid function and also for further evaluation of the throat tightness of unknown origin. We did discuss the other possibility that it could be acid reflux, and patient states that she eats a healthy high vegetable diet and is never had issues with reflux before. No nocturnal cough. Patient discharged home well-appearing and feeling better. Treatment Plan: [] Disposition: [] Impression: Throat tightness of unknown origin, elevated TSH This note was generated with [employer] dictation software. It may contain incorrect words, spelling, and punctuation that were not noted in review of the chart prior to signing ED Disposition - Plan for ED Patient: Disposition: Home or Assisted Living Instructions: Common Thyroid Problems Referrals: Shae Shore NP-C [Primary Care Provider] - 2 Days Additional Instructions: Please follow-up with your doctor for further evaluation of your throat discomfort and for further evaluation of your thyroid function. Your TSH tonight was elevated at 6.87, but your free T4 hormone was still within the normal range. If you have any worsening of your condition or any new concerning symptoms, please return immediately to the emergency department for another evaluation.
[2018-09-11 21:34] LABS: Basophil# 0.03 X10^3/uL; Basophil% 0.5 % (0-1); Eosinophil# 0.14 X10^3/uL; Eosinophils% 2.3 % (0-5); Hematocrit 42.2 % (37-47); Hemoglobin 15.2 g/dl (12.0-15.0); Mean Corpuscular Hgb 32.1 pg (27.0-32.0); Mean Corpuscular Volume 89.2 fL (81-99); Mean Platelet Vol. 9.1 fl (6.2-12.0); Monocyte# 0.44 X10^3/uL; Monocyte% 7.3 % (0-10); Neutrophil # 2.98 X10^3/uL (2.7-7.7); Neutrophil % 49.7 % (47-70); POSITIVE COUNT NO; POSITIVE DIFFERENTIAL NO; POSITIVE MORPHOLOGY NO; Platelet Count 268 K/mm3 (150-450); RBC Distribution Width CV 12.4 % (11.6-14.6); RBC Distribution Width SD 39.9 fl (35.1-43.9); Red Blood Count 4.73 M/mm3 (4.2-5.4)
--- NOTE | 2018-09-11 21:35 | RAD_ITS ---
STUDY: X-RAY CHEST REASON FOR EXAM: Female, 53 years old. Pressure in the chest and throat. Sore throat for 3 days. TECHNIQUE: PA and lateral views of the chest. COMPARISON: None. FINDINGS: The lungs are clear and expanded. There is no demonstrated pleural abnormality. Normal size heart. Normal mediastinum and nyla. Normal visualized pulmonary arteries. Normal visualized aortic arch and descending thoracic aorta. Normal visualized thoracic spine. Normal visualized ribs, clavicles, and shoulders. There is no demonstrated abnormality of the visualized soft tissue structures of the upper abdomen. RAD/Chest PA and Lateral IMPRESSION: No acute cardiopulmonary disease. Electronically Signed: Jose Steele DO at 21:54 EDT Tel [phone], Service support ,
[2018-09-11 21:54] LABS: AST(SGOT) 27 U/L (15-37); Alanine Aminotransfer ALT/SGPT 32 U/L (13-56); Albumin, Serum 3.8 g/dL (3.2-5.0); Alkaline Phosphatase 75 U/L (45-117); Anion Gap 4 (5-15); BUN 16 mg/dL (7-18); BUN/Creat Ratio 20.4 RATIO (10-20); Calcium,Total 8.7 mg/dL (8.5-10.1); Chloride 105 mmol/L (98-107); Creatinine, Serum 0.78 mg/dL (0.55-1.02); EST Glomerular Filtration Rate 81 mL/min (>60); Est Glom Filt Rate - Afr Amer 98 mL/min (>60); Estimated Creatinine Clearance 80.18 ml/min; Globulin 3.9 g/dL (2.2-4.2); Glucose 101 mg/dL (74-106); Magnesium 1.9 mg/dL (1.6-2.6); Potassium 3.6 mmol/L (3.5-5.1); Protein, Total 7.7 g/dL (6.4-8.2); Sodium Level 138 mmol/L (136-145); T4 Free Direct 0.99 ng/dL (0.76-1.46); Thyroid Stim Hormone (TSH) 6.87 uIU/mL (0.358-3.74)
[2018-09-11 22:06] VITALS: PULSE 84; RESP 11; O2SAT 98
[2018-09-11] MEDS: 0.9% Normal Saline 1,000 ML 1000 ML IV (22:06)
[2018-09-11 23:06] VITALS: PULSE 75; RESP 16; O2SAT 98
[2018-09-11 23:18] VITALS: BP 138/92; PULSE 74; RESP 16; O2SAT 98
[2018-09-11] MEDS: Aspirin 81 MG TAB.CHEW 324 MG PO (23:19)
--- NOTE | 2018-09-11 23:30 | EKG12_ITS ---
Test Reason : REPEAT CP Blood Pressure : / mmHG Vent. Rate : 077 BPM Atrial Rate : 077 BPM P-R Int : 144 ms QRS Dur : 090 ms QT Int : 402 ms P-R-T Axes : 061 078 073 degrees QTc Int : 454 ms Normal sinus rhythm Normal ECG Confirmed by GALINDO PATEL, SCOTTIE ([id number]), index editor ANNIE HILLIARD ([id number]) on 09/14/2018 1:31:02 PM Referred By: JACQUELINE Confirmed By:SCOTTIE MEDLEY MD
[2018-09-12 00:29] VITALS: BP 129/85; PULSE 71; RESP 16; O2SAT 99
== END 2018-09-12 00:30 | disposition home or self-care (01) ==
PROVIDERS: Emergency Provider Emergency Medicine; Family Provider Nurse Practitioner; PCP Nurse Practitioner
DX: R09.89 Other specified symptoms and signs involving the circulatory and respiratory systems (principal); R94.6 Abnormal results of thyroid function studies; E06.3 Autoimmune thyroiditis; Z79.82 Long term (current) use of aspirin
CPT/HCPCS: 71046; 80053; 83735; 84439; 84443; 84484; 85025; 93005; 96360; 99285; J7030; A4216

== ENCOUNTER → 2018-10-06 08:15 | Outpatient (CLI) | payer OTHER, SELFPAY ==
[2018-09-11 20:14] VITALS: BMI 23.5
--- NOTE | 2018-10-06 08:18 | US_ITS ---
STUDY: THYROID ULTRASOUND REASON FOR EXAM: Female, 53 years old. Throat tightness TECHNIQUE: Ultrasound evaluation of the thyroid was performed with real-time and static howard-scale imaging. COMPARISON: 2016 FINDINGS: RIGHT LOBE: The right lobe of the thyroid gland measures 4.8 x 1.8 x 1.9 cm. There is a heterogeneous echotexture. There is a 6.4 x 1.8 x 4.2 mm cyst in the right lobe. LEFT LOBE: The left lobe of the thyroid gland measures 5.1 x 2.2 x 1.6 cm. There is a heterogeneous echotexture. There are no demonstrated solid, cystic or complex lesions. ISTHMUS: The isthmus measures 0.3 cm. The regional lymph nodes are normal. US/Thyroid IMPRESSION: Heterogeneous borderline enlarged thyroid gland with a complex solid/cystic 6.4 mm nodule in the upper pole the right thyroid lobe. Additionally, there is sonographic evidence of hyperemia. Thyroiditis should be considered. No discrete solid lesion Electronically Signed: Nathan Teran MD at 10:33 EDT , Service support ,
--- NOTE | 2018-10-06 08:28 | RAD_ITS ---
STUDY: BARIUM ESOPHAGRAM REASON FOR EXAM: Female, 53 years old. Dysphagia, particularly pills RADIATION DOSAGE (If Supplied By Facility): CTDIvol = ( ) mGy, DLP = ( ) mGycm. Individualized dose optimization techniques were used for this CT.? FLUOROSCOPY TIME (if supplied): (1:18) minutes/seconds TECHNIQUE: Air-contrast COMPARISON: None. FINDINGS: Swallowing was initiated normally. No nasofrontal reflux or aspiration. No Zenker's diverticulum noted in the lateral view. Normal peristaltic activity noted in the esophagus. No evidence of hiatal hernia or GE reflux. 13 mm barium pill passed through the esophagus without difficulty. RAD/Esophagus Only IMPRESSION: Normal study Electronically Signed: Nathan Teran MD at 9:31 EDT , Service support ,
== END ==
PROVIDERS: Family Provider Nurse Practitioner; PCP Nurse Practitioner; Referring Provider Nurse Practitioner; Visit Provider Nurse Practitioner
DX: R68.89 Other general symptoms and signs (principal)
CPT/HCPCS: 74220; 76536

== ENCOUNTER → 2018-10-13 06:15 | Outpatient (CLI) | payer OTHER, SELFPAY ==
[2018-10-13 07:49] LABS: Erythrocyte Sedimentation Rate 4 mm/hr (0-30)
[2018-10-13 08:00] LABS: CRP, High Sensitivity Cardiac 1.14 mg/L
== END ==
PROVIDERS: Family Provider Nurse Practitioner; PCP Nurse Practitioner; Referring Provider Nurse Practitioner; Visit Provider Nurse Practitioner
DX: R94.6 Abnormal results of thyroid function studies (principal)
CPT/HCPCS: 36415; 85652; 86141

== ENCOUNTER → 2018-10-24 08:46 | Outpatient (CLI) | payer OTHER, SELFPAY ==
[2018-10-24 10:15] LABS: Free T3 2.7 pg/mL (2.18-3.98); T4 Free Direct 0.93 ng/dL (0.76-1.46)
[2018-10-25 07:44] LABS: Thyroid Peroxidase AB 271 IU/mL (0-34)
== END ==
PROVIDERS: Family Provider Nurse Practitioner; PCP Nurse Practitioner; Referring Provider Nurse Practitioner; Visit Provider Nurse Practitioner
DX: R93.89 Abnormal findings on diagnostic imaging of other specified body structures (principal)
CPT/HCPCS: 36415; 84439; 84481; 86376

== ENCOUNTER → 2018-11-25 11:23 | Outpatient (CLI) | payer OTHER, SELFPAY ==
--- NOTE | 2018-11-27 16:30 | STRESSREP ---
Stress Test Report Date: 11/25/2018 Procedure: Exercise tolerance test Indications: Chest pain Consent: Per the patient Procedure: The patient exercised on a Robby protocol for 7 minutes achieving a peak heart rate of 176 bpm (106 % predicted maximal heart rate) with a peak blood pressure 172/100 mmHg and a peak MET capacity of approximately 8.5 mET's. The baseline ECG demonstrated normal sinus rhythm. The peak exercise ECG demonstrated tachycardia with about [address] depressions in the inferior and lateral leads. [There were no cardiac dysrhythmias pretest, during exercise, or recovery]. The functional capacity was considered normal for age. The patient had no complaint of chest discomfort during exercise or recovery. The examination was discontinued secondary to dyspnea. Impression: 1. Technically adequate (percent predicted maximal heart rate greater than 85%) exercise tolerance test 2. Treadmill stress test is negative for exercise-induced chest pain or EKG changes of ischemia. 3. [There were no cardiac dysrhythmias during exercise or recovery] This note was generated with [employer] software. It may contain incorrect words, spelling, and punctuation that were not noted in checking the note before signing.
== END ==
PROVIDERS: Family Provider Nurse Practitioner; PCP Nurse Practitioner; Referring Provider Nurse Practitioner; Visit Provider Nurse Practitioner
DX: R07.89 Other chest pain (principal)
CPT/HCPCS: 93017

== ENCOUNTER → 2019-02-15 06:57 | Outpatient (CLI) | payer OTHER, SELFPAY ==
--- NOTE | 2019-02-15 07:00 | BI_ITS ---
MAMMOGRAPHY - BILATERAL SCREENING REASON FOR EXAM: Female, 53 years old. Routine annual screening examination. PERTINENT HISTORY: Non-contributory. TECHNIQUE: Digital bilateral breast salvador (3D mammographic acquisition) in the CC and MLO projections. 2-D mediolateral oblique (MLO) and craniocaudad (CC) views of both breasts were obtained. CAD: Full Field Digital Mammography with Computer Added Detection was performed. COMPARISON: Comparison is made with prior study dated February 10, 2018 and November 21, 2006. FINDINGS: Breast Composition: The breasts are heterogeneously dense, which may obscure small masses. There are no dominant masses or suspicious calcifications. No other significant abnormalities are identified. There has been no significant change since the prior study. BI/SCREEN MAMM (CAD) W/SALVADOR BILAT IMPRESSION: Stable bilateral screening mammogram. Yearly follow-up mammogram recommended. (A) ASSESSMENT CATEGORY: BIRADS Category 1: Negative. A letter regarding these results will be sent to the patient by the facility within 30 days. Approximately 10% of breast cancers are not detected by mammography. A normal mammogram should not delay biopsy of a clinically suspicious abnormality. [id number] Electronically Signed: Jose Angel Conteh, at 8:55 EST , Service support ,
== END ==
PROVIDERS: Family Provider Nurse Practitioner; PCP Nurse Practitioner; Referring Provider Nurse Practitioner; Visit Provider Nurse Practitioner
DX: Z12.31 Encounter for screening mammogram for malignant neoplasm of breast (principal)
CPT/HCPCS: 77063; 77067

== ENCOUNTER → 2020-03-23 09:25 | Outpatient (CLI) | payer OTHER, SELFPAY ==
--- NOTE | 2020-03-23 09:30 | BI_ITS ---
MAMMOGRAPHY - BILATERAL SCREENING REASON FOR EXAM: Female, 54 years old. Routine annual screening examination. PERTINENT HISTORY: Non-contributory. TECHNIQUE: Digital bilateral breast salvador (3D mammographic acquisition) in the CC and MLO projections. 2-D mediolateral oblique (MLO) and craniocaudad (CC) views of both breasts were obtained. CAD: Full Field Digital Mammography with Computer Added Detection was performed. COMPARISON: Comparison is made with prior study dated 02/15/2019 and February 10 2018. FINDINGS: Breast Composition: The breasts are heterogeneously dense, which may obscure small masses. There are no dominant masses or suspicious calcifications. No other significant abnormalities are identified. There has been no significant change since the prior study. BI/SCREEN MAMM (CAD) W/SALVADOR BILAT IMPRESSION: Stable bilateral screening mammogram. Yearly follow-up mammogram recommended. (A) ASSESSMENT CATEGORY: BIRADS Category 1: Negative. A letter regarding these results will be sent to the patient by the facility within 30 days. Approximately 10% of breast cancers are not detected by mammography. A normal mammogram should not delay biopsy of a clinically suspicious abnormality. [id number] Electronically Signed: Jose Angel Conteh, at 9:56 EST , Service support ,
--- NOTE | 2020-03-23 09:55 | BD_ITS ---
STUDY: DUAL ENERGY X-RAY ABSORPTIOMETRY / DXA REASON FOR EXAM: Female, 54 years old. Age of pavel 53. Pat is 149.7# and 67 and quot;. Takes levothyroxin, 100mg of calcium and a multi-vit. Exercises a little to moderately. Mom has osteo. TECHNIQUE: Bone Mineral Density (BMD) measurements of lumbar spine and bilateral hips were obtained. COMPARISON: None. FINDINGS: Lumbar Spine (L1-L4): g/cm2 (1.042) / T-score (-1.0) / Z-score (-0.2) Findings are suggestive of osteopenia with a low fracture risk. Left Femur Total: g/cm2 (0.850) / T-score (-1.3) / Z-score (-0.6) Left Femoral Neck: g/cm2 (0.862) / T-score (-1.3) / Z-score (-0.2) Right Femur Total: g/cm2 (0.880) / T-score (-1.0) / Z-score (-0.3) Right Femoral Neck: g/cm2 (0.911) / T-score (-0.9) / Z-score (0.1) BD/Dexa Bone Density Study IMPRESSION: The patient is considered osteopenic as outlined below according to World Omar Organization (WHO) criteria with a low fracture risk. Reference Information: The T-score is the number of standard deviations above or below the standard which is normal for young adults at their peak bone mineral density. The World Health Organization (WHO) interprets the T-scores as follows: Above -1 Normal bone density Between -1 and -2.5 Osteopenia Equal to / or below -2.5 Osteoporosis As a practical clinical guideline, osteopenia may be graded as follows: Mild -1 through -1.5 Moderate -1.6 through -2.0 Severe -2.1 through -2.4 The Z-score is the number of standard deviations above or below age-matched controls. A Z-score of less than -1.5 would be considered abnormal. References: 1. NIH Osteoporosis and Related Bone Diseases www osteo.org 2. International Society for Clinical Densitometry www iscd.org 3. National Osteoporosis Foundation www nof.org Electronically Signed: Jose Angel Conteh, at 9:15 EST , Service support ,
== END ==
PROVIDERS: PCP Nurse Practitioner; Referring Provider Nurse Practitioner; Visit Provider Nurse Practitioner
DX: Z78.0 Asymptomatic menopausal state (principal); Z12.31 Encounter for screening mammogram for malignant neoplasm of breast
CPT/HCPCS: 77063; 77067; 77080

== ENCOUNTER → 2024-12-02 | Outpatient (CLI) | payer OTHER, SELFPAY ==
[2024-12-02 10:11] LABS: Hematocrit 37.6 % (37-47); Hemoglobin 12.4 g/dL (12.0-15.0); Immature Granulocytes Count 0.010 X10^3/uL (0.0-0.0); Mean Corp Hgb Conc 33.0 g/dL (32-36); Mean Corpuscular Volume 83.6 fL (81-99); Mean Platelet Vol. 9.8 fl (6.2-12.0); NRBC Flagged by Analyzer 0 % (0-5); Platelet Count 316 K/mm3 (150-450); RBC Distribution Width CV 15.2 % (11.6-14.6); RBC Distribution Width SD 46.3 fl (35.1-43.9); Red Blood Count 4.50 M/mm3 (4.2-5.4); White Blood Count 7.1 K/mm3 (4.4-11.0)
[2024-12-02 10:53] LABS: AST(SGOT) 32 U/L (<=31); Alanine Aminotransfer ALT/SGPT 20 U/L (<=34); Albumin, Serum 4.2 g/dL (3.4-4.8); Alkaline Phosphatase 93 U/L (35-104); Anion Gap 11 (5-15); BUN 16 mg/dL (4-19); BUN/Creat Ratio 25.0 RATIO (10-20); Calcium,Total 9.4 mg/dL (7.6-11.0); Carbon Dioxide 24.7 mmol/L (21.0-32.0); Chloride 104 mmol/L (98-108); Cholesterol 147 mg/dL (<=200); Free T3 2.6 pg/mL (2.18-3.98); Globulin 3.1 g/dL (2.2-4.2); Glucose 94 mg/dL (70-99); Low Density Lipoprotein Calc. 73 mg/dL; Potassium 4.1 mmol/L (3.3-5.1); Triglycerides 127 mg/dL; Very Low Density Lipoprotein 25 mg/dL (5-40); cholesterol:hdl ratio screen 3.03
== END | disposition home or self-care (01) ==
LOC: MTLAB 08:38
PROVIDERS: PCP Nurse Practitioner Family; Referring Provider Nurse Practitioner Family; Visit Provider Nurse Practitioner Family
DX: D64.9 Anemia, unspecified (principal); E21.3 Hyperparathyroidism, unspecified
CPT/HCPCS: 36415; 80053; 80061; 84439; 84443; 84481; 85025

== ENCOUNTER → 2024-12-15 | Outpatient (CLI) | payer OTHER, SELFPAY | END | disposition home or self-care (01) | LOC: OPBI 07:43 | PROVIDERS: PCP Nurse Practitioner Family; Referring Provider Nurse Practitioner Family; Visit Provider Nurse Practitioner Family | DX: Z12.31 Encounter for screening mammogram for malignant neoplasm of breast (principal) | CPT/HCPCS: 77063; 77067 ==